=== PATIENT | female | born 1940 | race Caucasian/White ===

== ENCOUNTER 2018-08-05 15:56 | Emergency (ER) | payer MEDICARE, OTHER, SELFPAY ==
[2018-08-05 15:57] VITALS: BP 162/97; PULSE 105; RESP 17; TEMP 37.9; O2SAT 95; BMI 29.0
--- NOTE | 2018-08-05 16:29 | CT_ITS ---
STUDY: CT BRAIN WITHOUT CONTRAST REASON FOR EXAM: Female, 77 years old. Headache, neck pain and stiffness, fever. History of hypertension. RADIATION DOSAGE (If Supplied By Facility): CTDIvol = ( ) mGy, DLP = ( ) mGycm TECHNIQUE: Transaxial CT imaging of the brain was performed without administration of intravenous contrast material. Individualized dose optimization techniques were used for this CT. COMPARISON: No relevant priors. FINDINGS: Normal soft tissue structures. Normal calvarium. Normal size ventricles and extra-axial spaces for the patient's age. Normal white matter tracts of the cerebral hemispheres. Normal basal ganglia and thalami. Normal brainstem. Normal cerebellum. There are mild atherosclerotic calcifications of the cavernous segments of the bilateral internal carotid arteries. There is no intracranial hemorrhage. There are no findings of an acute ischemic infarction. Normal visualized paranasal sinuses. CT/Brain/Head without Contrast IMPRESSION: No acute intracranial pathology. Electronically Signed: Costa Jackson MD at 18:40 EDT , Service support ,
--- NOTE | 2018-08-05 16:29 | CT_ITS ---
STUDY: CT CERVICAL SPINE WITH CONTRAST REASON FOR EXAM: Female, 77 years old. Headache, neck pain and stiffness, fever. History of hypertension. RADIATION DOSAGE (If Supplied By Facility): CTDIvol = ( ) mGy, DLP = ( ) mGycm TECHNIQUE: High resolution transaxial imaging was performed following intravenous administration of 100 mL Isovue-300. Sagittal and coronal images were reconstructed. Individualized dose optimization techniques were used for this CT. COMPARISON: None FINDINGS: Normal craniovertebral junction. There are hypertrophic degenerative changes of the anterior atlantoaxial articulation. There is faint calcification in the cruciate ligament. Normal odontoid process. Normal lower cervical lordosis, minor mid cervical kyphosis, and straightening of the upper cervical lordosis. No acute fracture of the vertebral bodies and posterior osseous elements. C2-3: Normal endplates. Normal disc height and morphology. There is moderate narrowing and early periarticular spurring of the left facet articulation. Normal central canal and intervertebral neuroforamina. C3-4: Right anterolateral and posterolateral endplate spurring. Early degenerative left posterolateral endplate lipping. Normal disc height and morphology. Degenerative degenerative arthropathy of the right facet degeneration with moderately severe space narrowing as well as subarticular cystic degenerative change. Very early degenerative change on the left. Normal central canal. Mild osseous encroachment on the right intervertebral neuroforamen. C4-5: Circumferential endplate osteophytes and degenerative subcortical sclerosis. Moderately severe disc height narrowing. Degenerative narrowing and sclerosis at the anterior margin of the left facet joint. There is osteophyte impingement on the anterior central canal and left intervertebral neuroforamen. C5-6: Circumferential endplate osteophytes and degenerative subcortical sclerosis. Moderately severe disc height narrowing with central posterior disc protrusion. Normal bilateral facet articulations. 1-2 mm retrolisthesis of C5 on C6. There is osteophyte and disc impingement on the anterior central canal. Mild narrowing of the intervertebral neuroforamina. C6-7: Circumferential endplate spurring/osteophytes, greater to the left. Moderately severe disc height narrowing with minor central posterior disc bulge. Anterior narrowing of the left facet joint space. Borderline retrolisthesis of C6 on C7. There is osteophyte impingement on the left anterior recess of central canal and left intervertebral neuroforamen. C7-T1: Mild anterior endplate spurring. Normal disc height and morphology. Hypertrophic degenerative arthrosis of the left facet joint with interosseous fusion and periarticular spurring. Ukbi-ad-[id number] degenerative change noted on the right. Normal central canal. There is early osseous encroachment on the left intervertebral neuroforamen. Normal visualized prevertebral soft tissue structures. There is degenerative ossification in the nuchal ligament at the level of the C5 spinous process. Minor atherosclerotic calcification of the left carotid artery. CT/Spine Cervical WITH Contrast IMPRESSION: 1. No acute fracture of the cervical spine. 2. Multilevel degenerative changes, as described above. Electronically Signed: Costa Jackson MD at 18:40 EDT , Service support ,
--- NOTE | 2018-08-05 16:37 | ED.DCSUM_ITS ---
- ER Visit Summary Date of Service: 08/05/18 Chief Complaint: Fever, neck and back pain History of Present Illness: The patient is a 77 F who noted stiffness to her neck and back yesterday. She had a fever of 100.9 yesterday. Her back and neck are painful with palpation or with movement. She states she was out mulching the yard 4 days ago. She denies headache or URI symptoms. No significant cough or abdominal complaints. reportedly noted a lump on her back. Patient initially went to the urgent care. Urine dip there showed a small amount of leukocyte esterase in her urine. Patient has had prior appendectomy and right hemicolectomy. Physical Examination: Blood pressure is 162/97, temperature 100.2, heart rate 105, respiratory rate 17, pulse ox 95% on room air. Patient is sitting upright in bed no acute distress. She is nontoxic appearing. Head and neck examination reveals tenderness in the cervical paraspinal muscles. There is no meningismus. Heart is regular rate and rhythm. Lung sounds are clear. Abdomen is soft and nontender. Back examination was reproducible tenderness in the thoracic and lumbar paraspinal muscles. Skin examination was erythema over the left scapula with yellow blistered lesions consistent with zoster. Neuro exam reveals no deficits. Test Results: Two-view chest x-ray shows hyperexpansion and minimal scarring. CT head shows no acute intracranial pathology. CT C-spine shows degenerative changes. CBC reveals a white count of 14.1 with 76% neutrophils. Chemistry studies unremarkable. Urinalysis normal. Blood cultures were drawn. Lactic acid is 1.1. Emergency Department Course and Treatment: Patient was given Tylenol for fever. Following completion of unremarkable imaging studies she was given Toradol, Solu-Medrol, and acyclovir. I believe the patient does have some musculoskeletal back pain as she has reproduced will tenderness throughout the paraspinal musculature with recent physical exertion with yardwork. She also has evidence of shingles over the posterior left shoulder. She is treated with prednisone and acyclovir at home. She will be given a short course of [facility] as needed for pain. Treatment Plan: [] Disposition: Discharge Impression: Varicella-zoster left posterior shoulder This note was generated with [employer] dictation software. It may contain incorrect words, spelling, and punctuation that were not noted in review of the chart prior to signing ED Disposition - Plan for ED Patient: Disposition: Home or Assisted Living Instructions: ED Shingles Prescriptions: Hydrocodone Bitart/Apap 5-325 [[facility] 5MG-325MG] 1 tablet PO Q4H PRN PRN 2 Days #10 tablet PRN Reason: Pain Acyclovir [Zovirax] 800 mg PO 5X/DAY #35 tablet Prednisone 10 mg PO UD #33 tablet Referrals: Tim Morillo III, MD [Primary Care Provider] - 3-5 Days
[2018-08-05] MEDS: 0.9% Normal Saline 1,000 ML 150 ML IV (16:56)
[2018-08-05] MEDS: Acetaminophen 500 MG Tablet 1000 MG PO (16:56)
[2018-08-05 17:01] VITALS: BP 148/75; PULSE 90; RESP 18; TEMP 37.4; O2SAT 94
[2018-08-05 17:07] LABS: Absolute Lymphocyte Count 1.07 X10^3/ul (0.83-4.51); Absolute Neutrophil Count 10.8 X10^3/uL (2.0-7.7); Basophil# 0.05 X10^3/uL; Basophil% 0.4 % (0-1); Eosinophil# 0.02 X10^3/uL; Eosinophils% 0.1 % (0-5); Hematocrit 43.9 % (37-47); Hemoglobin 14.9 g/dl (12.0-15.0); Lymphocyte # 1.07 X10^3/ul (4.0); Lymphocyte % 7.6 % (19-41); Mean Corp Hgb Conc 33.9 g/gl (32-36); Mean Corpuscular Volume 97.3 fL (81-99); Mean Platelet Vol. 10.7 fl (6.2-12.0); Monocyte# 2.19 X10^3/uL; Monocyte% 15.5 % (0-10); Neutrophil # 10.79 X10^3/uL (2.7-7.7); Neutrophil % 76.3 % (47-70); Platelet Count 262 K/mm3 (150-450); RBC Distribution Width CV 13.1 % (11.6-14.6); RBC Distribution Width SD 46.7 fl (35.1-43.9); Red Blood Count 4.51 M/mm3 (4.2-5.4); White Blood Count 14.1 K/mm3 (4.4-11.0)
[2018-08-05 17:11] LABS: Differential Indicated SCAN CRITERIA MET; POSITIVE COUNT NO; POSITIVE DIFFERENTIAL YES; POSITIVE MORPHOLOGY NO
[2018-08-05 17:15] LABS: Anion Gap 7 (5-15); BUN 14 mg/dL (7-18); BUN/Creat Ratio 15.9 RATIO (10-20); Calcium,Total 9.2 mg/dL (8.5-10.1); Chloride 101 mmol/L (98-107); Creatinine, Serum 0.88 mg/dL (0.55-1.02); EST Glomerular Filtration Rate 66 mL/min (>60); Est Glom Filt Rate - Afr Amer 80 mL/min (>60); Estimated Creatinine Clearance 48.94 ml/min; Glucose 112 mg/dL (74-106); Potassium 3.5 mmol/L (3.5-5.1); Sodium Level 138 mmol/L (136-145)
[2018-08-05 17:20] LABS: Lactic Acid 1.1 mmol/L (0.4-2.0)
[2018-08-05 17:23] LABS: Differential Comment SCANNED
--- NOTE | 2018-08-05 17:46 | RAD_ITS ---
STUDY: X-RAY CHEST REASON FOR EXAM: Female, 77 years old. Fever, neck and back pain. Shingles on shoulder. TECHNIQUE: PA and lateral views of the chest. COMPARISON: None. FINDINGS: There is hyperinflation of the lungs, suggesting obstructive lung disease. Minimal linear scarring or subsegmental atelectasis noted in the inferolateral costophrenic sulci. No lobar consolidation. There is no demonstrated pleural abnormality. Normal size heart. Normal mediastinum and deshawn. Normal visualized pulmonary arteries. Normal visualized aortic arch and descending thoracic aorta. There are degenerative changes of the mid thoracic spine. 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 Normal visualized ribs, clavicles, and shoulders. There is no demonstrated abnormality of the visualized soft tissue structures of the upper abdomen. RAD/Chest PA and Lateral IMPRESSION: Hyperexpanded, suggesting obstructive pulmonary disease. Minimal inferolateral pulmonary scarring. Electronically Signed: Costa Jackson MD at 18:40 EDT , Service support ,
[2018-08-05 18:01] VITALS: BP 153/77; PULSE 87; RESP 19; TEMP 37.3; O2SAT 94
[2018-08-05 18:57] LABS: Bacteria 0 SEEN /hpf (None Seen); Mucous, Urine 0 SEEN /hpf (<or=2+); Red Blood Cells-Urine 0 SEEN /hpf (0-5); Squamous Epithelial Cells - UA 0 SEEN /hpf (5-10)
[2018-08-05 19:11] LABS: Color, Urine Yellow (Yellow); Glucose, Dipstick Normal (Normal); Ketone-Dipstick Negative (Negative); Leukocyte Esterase-Dipstick 25 /ul (Negative); Nitrite-Dipstick Negative (Negative); Occult Blood-Urine 10 /ul (Negative); Protein-Dipstick Negative (Negative); Specific Gravity, Urine 1.005 (1.002-1.030); Urine Bilirubin Dipstick Negative (Negative); Urine Clarity Clear (Clear); Urine Urobilinogen Normal (Normal)
[2018-08-05 19:38] LABS: White Blood Cells 0-5 SEEN /hpf (0-5)
[2018-08-05] MEDS: Acyclovir 800 MG Tablet PO (19:46)
[2018-08-05] MEDS: MethylPREDNISolone 125 MG/2 ML Vial IV (19:46)
[2018-08-05] MEDS: Ketorolac 15 MG/ML Vial IV (19:47)
[2018-08-05 20:37] VITALS: BP 155/70; PULSE 79; RESP 16; O2SAT 92
[2018-08-05 20:42] VITALS: BP 155/70; PULSE 79; RESP 16; O2SAT 94
[2018-08-08 14:44] LABS: Pathologist Review Reviewed
== END 2018-08-05 20:43 | disposition home or self-care (01) ==
PROVIDERS: Emergency Provider Emergency Medicine; Family Provider Family Medicine; PCP Family Medicine
DX: B02.9 Zoster without complications (principal); I10 Essential (primary) hypertension; Z79.82 Long term (current) use of aspirin; Z79.899 Other long term (current) drug therapy
CPT/HCPCS: 36415; 70450; 71046; 72126; 80048; 81001; 83605; 85025; 87040; 96361; 96374; 96375; 99284; J7030; Q9967; A4216

== ENCOUNTER 2020-05-30 06:39 | Outpatient (RCR) | payer MEDICARE, OTHER, SELFPAY ==
[2020-05-30] MEDS: COVID-19 VACC, MRNA(PFIZER)/PF 30 MCG/0.3 ML SYRINGE IM (16:31)
[2020-06-20] MEDS: COVID-19 VACC, MRNA(PFIZER)/PF 30 MCG/0.3 ML SYRINGE IM (15:58)
== END 2020-09-03 23:59 ==
LOC: IMMUN 06:39
PROVIDERS: PCP Family Medicine; Referring Provider Family Medicine; Visit Provider Family Medicine
DX: Z23 Encounter for immunization (principal)
CPT/HCPCS: 0001A; 0002A; 91300

== ENCOUNTER → 2023-04-15 | Outpatient (CLI) | payer MEDICARE, OTHER, SELFPAY ==
--- OUTSIDE RECORDS SUMMARY | 2023-04-15 06:02 | XMS RPT_ITS | CCD ---
Author Name Unknown Address [address] [place] [address] Organization [facility] Care Team Providers Care 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 Name Role Phone Elizabeth Schmidt MD Primary Care Provider ELIZABETH SCHMIDT Primary Care Unavailable ELIZABETH SCHMIDT Referring Unavailable ELIZABETH SCHMIDT Primary Care Unavailable ELIZABETH SCHMIDT Referring Unavailable ELIZABETH SCHMIDT Primary Care Unavailable ELIZABETH SCHMIDT Attending Unavailable CARLOS MILLER Referring Unavailable ELIZABETH SCHMIDT Primary Care Unavailable ELIZABETH SCHMIDT Primary Care Unavailable ELIZABETH SCHMIDT Referring Unavailable ELIZABETH SCHMIDT Primary Care Unavailable ELIZABETH SCHMIDT Attending Unavailable ELIZABETH SCHMIDT Primary Care Unavailable ELIZABETH BARCENAS Referring Unavailable ELIZABETH SCHMIDT Primary Care Unavailable Allergies Allergy Classification Reported Allergen(s) Allergy Type Date of Onset Reaction(s) Facility (13 sources) meloxicam; Translations: [MELOXICAM] Drug Allergy 8 GI Upset [facility] Work Phone: (9 sources) ENVIRONMENTAL [Other] Propensity to adverse reactions 5 Unknown [facility] Work Phone: (1 source) OTHER; Translations: [OTHER] Propensity to adverse reactions (disorder) 5 [facility] Medications Current Medications Medication Drug Class(es) Dates Sig (Normalized) Sig (Original) benzonatate 100 mg oral capsule (3 sources) Non-narcotic Antitussive Start: 02-24-2023 End: 03-03-2023 take 1 capsule by mouth every eight hours as needed benzonatate (TESSALON PERLE) 100 mg capsule Take 1 capsule by mouth three times a day as needed for cough for up to 7 days. 21 capsule 0 02/24/2023 03/03/2023 Active Completed/Discontinued Medications Medication Drug Class(es) Dates Sig (Normalized) Sig (Original) [id number] 200 actuat albuterol 0.09 mg/actuat metered dose inhaler (12 sources) beta2-Adrenergic Agonist Start: 05-06-2020 take 2 puff(s) by inhalation every four hours as needed for wheezing albuterol HFA (PROAIR HFA) 90 mcg/actuation inhaler INHALE 2 PUFFS INTO THE LUNGS INSTRUCTED EVERY 4 HOURS NEEDED FOR WHEEZING/SOB 8 g 4 05/06/2020 Active Problems Active Problems Problem Classification Problem Date Documented Da te Episodic/Chronic Asthma (14 sources) Mild intermittent asthma; Translations: [Mild intermittent asthma, uncomplicated] Onset: 6 Chronic Cardiac dysrhythmias (2 sources) Premature atrial contraction; Translations: [Atrial premature depolarization] Onset: 3 03-01-2023 Chronic Cardiac dysrhythmias (2 sources) Palpitations; Translations: [Palpitations] Onset: 3 03-01-2023 Episodic Disorders of lipid metabolism (15 sources) Mixed hyperlipidemia; Translations: [Mixed hyperlipidemia] Onset: 6 Chronic Esophageal disorders (15 sources) Gastroesophageal reflux disease without esophagitis; Translations: [Gastro-esophageal reflux disease without esophagitis] Onset: 7 Chronic Essential hypertension (15 sources) Essential hypertension; Translations: [Essential (primary) hypertension] Onset: 9 Chronic Headache; including migraine (14 sources) Ophthalmic migraine; Translations: [Migraine with aura, not intractable, without status migrainosus] Chronic Osteoarthritis (20 sources) Arthritis of left knee; Translations: [Unilateral primary osteoarthritis, left knee] Onset: 5 04-24-2021 Chronic Other connective tissue disease (1 source) Pain in right foot; Translations: [Pain in right foot] Episodic Other connective tissue disease (1 source) Tendinitis; Translations: [Other enthesopathy of unspecified foot and ankle] Episodic Other gastrointestinal disorders (14 sources) Irritable bowel syndrome; Translations: [Irritable bowel syndrome without diarrhea] Onset: 1 Chronic Other inflammatory condition of skin (12 sources) Rosacea; Translations: [Rosacea, unspecified] Onset: 9 04-24-2021 Chronic Other nutritional; endocrine; and metabolic disorders (2 sources) Hypomagnesemia; Translations: [Hypomagnesemia] Onset: 3 03-02-2023 Chronic Retinal detachments; defects; vascular occlusion; and retinopathy (12 sources) Nonexudative age-related macular degeneration; Translations: [Nonexudative age-related macular degeneration, unspecified eye, stage unspecified] 04-24-2021 Chronic Unclassified (1 source) Acute cough; Translations: [Acute cough] Onset: 3 Past or Other Problems Problem Classification Problem Date Documented Da te Episodic/Chronic Administrative/social admission (14 sources) Advance directive discussed with patient; Translations: [Other specified counseling] Onset: 2 Episodic Coagulation and hemorrhagic disorders (2 sources) Petechiae; Translations: [Spontaneous ecchymoses] Onset: 3 Episodic Immunizations and screening for infectious disease (14 sources) Requires vaccination; Translations: [Encounter for immunization] Onset: 2 Episodic Other aftercare (12 sources) Patient encounter status; Translations: [Other mcfp (current) drug therapy] Onset: 2 04-24-2021 Episodic Other aftercare (1 source) Other exterminator helper (current) drug therapy; Translations: [Medication management] Onset: 2 Episodic Other gastrointestinal disorders (12 sources) Diarrhea after gastrointestinal tract surgery; Translations: [Diarrhea, unspecified] Onset: 5 01-03-2015 Episodic Other inflammatory condition of skin (12 sources) Lichen planus; Translations: [Lichen planus, unspecified] Onset: 1 04-24-2021 Episodic Other non-traumatic joint disorders (2 sources) Pain in right knee; Translations: [Pain in joint, lower leg] Onset: 3 Episodic Other non-traumatic joint disorders (1 source) Pain in left knee; Translations: [Pain in both knees, unspecified chronicity] Onset: 3 Episodic Residual codes; unclassified (13 sources) Active living will ; Translations: [Other specified health status] Onset: 2 Episodic Results Test Name Value Interpretation Reference Range Facil ity Vital Signs Date Time Vital Sign Value Performing Clinician Faci lity 03-01-2023 15:50-0500 Diastolic blood pressure 78 mm[Hg] Elizabeth Schmidt MD Work Phone: [facility] 03-01-2023 15:50-0500 Systolic blood pressure 138 mm[Hg] Elizabeth Schmidt MD Work Phone: [facility] 03-01-2023 15:09-0500 Body temperature 98.6 [degF] Elizabeth Schmidt MD Work Phone: [facility] 03-01-2023 15:09-0500 Body weight 77.56 kg Elizabeth Schmidt MD Work Phone: [facility] 03-01-2023 15:09-0500 Heart rate 68 /min Elizabeth Schmidt MD Work Phone: [facility] 03-01-2023 15:09-0500 Respiratory rate 16 /min Elizabeth Schmidt MD Work Phone: [facility] 03-01-2023 15:09-0500 SaO2% (BldA) [Mass fraction] 97 % Elizabeth Schmidt MD Work Phone: [facility] 01-05-2022 07:54-0400 Body temperature 97.9 [degF] Liliana Praisler-Wood AIR CARRIER INSPECTOR.CLINICAL NURSE OCCUPATIONAL MEDICINE Work Phone: [facility] 01-05-2022 07:54-0400 Body weight 79.11 kg Liliana Praisler-Wood AIR CARRIER INSPECTOR.CLINICAL NURSE OCCUPATIONAL MEDICINE Work Phone: [facility] 01-05-2022 07:54-0400 Diastolic blood pressure 80 mm[Hg] Liliana Praisler-Wood AIR CARRIER INSPECTOR.CLINICAL NURSE OCCUPATIONAL MEDICINE Work Phone: [facility] 01-05-2022 07:54-0400 Heart rate 91 /min Liliana Praisler-Wood AIR CARRIER INSPECTOR.CLINICAL NURSE OCCUPATIONAL MEDICINE Work Phone: [facility] 01-05-2022 07:54-0400 Respiratory rate 18 /min Liliana Praisler-Wood AIR CARRIER INSPECTOR.CLINICAL NURSE OCCUPATIONAL MEDICINE Work Phone: [facility] 01-05-2022 07:54-0400 SaO2% (BldA) [Mass fraction] 97 % Liliana Skinner AIR CARRIER INSPECTOR.CLINICAL NURSE OCCUPATIONAL MEDICINE Work Phone: [facility] 01-05-2022 07:54-0400 Systolic blood pressure 126 mm[Hg] Liliana Skinner AIR CARRIER INSPECTOR.CLINICAL NURSE OCCUPATIONAL MEDICINE Work Phone: [facility] 07-11-2021 09:13-0400 Body height 161 cm Elizabeth Schmidt MD Work Phone: [facility] 07-11-2021 09:13-0400 Body weight 79.38 kg Elizabeth Schmidt MD Work Phone: [facility] 07-11-2021 09:13-0400 Diastolic blood pressure 80 mm[Hg] Elizabeth Schmidt MD Work Phone: [facility] 07-11-2021 09:13-0400 Heart rate 68 /min Elizabeth Schmidt MD Work Phone: [facility] 07-11-2021 09:13-0400 Respiratory rate 12 /min Elizabeth Schmidt MD Work Phone: [facility] 07-11-2021 09:13-0400 Systolic blood pressure 122 mm[Hg] Elizabeth Schmidt MD Work Phone: [facility] Encounters Encounter Date Encounter Type Care Provider Facility Start: 03-02-2023 Telephone encounter Elizabeth Schmidt MD Work Phone: [facility] Procedures Date Procedure Procedure Detail Performing Clinician Start: 07-11-2021 Adult depression screening assessment Elizabeth Schmidt MD Work Phone: Plan of Treatment Date Care Activity Detail Author Start: 03-01-2026 Diabetes Screening Diabetes [facility] [place] Start: 07-22-2025 DIABETES SCREEN DIABETES SCREEN [facility] Start: 07-22-2025 Diabetes Screening Diabetes Screenin [place] Start: 07-05-2024 DIABETES SCREEN DIABETES SCREEN [facility] Start: 07-30-2023 ANNUAL PCP TEAM ERISA ATTORNEY LACEY DISEASE VISIT ANNUAL PCP TEAM CHRONIC DISEASE VISIT [facility] Start: 07-30-2023 BP CONTROLLED (<130/80) BP CONTROLLE D (<130/80) [facility] Start: 07-30-2023 Urine microalbumin profile [facility] Immunizations Immunization Date Immunization Notes Care Provider Vic hernandes 12-31-2022 Influenza, injectabl e, Madin [place] Canine Kidney, quadrivalent with preservative Elizabeth Schmidt MD Work Phone: [facility] 07-29-2022 pneumococcal (PCV20) vaccine, 20 valent (PREVNAR 20) Elizabeth Schmidt MD Work Phone: [facility] 07-29-2022 pneumococcal Conjuga te, unspecified formulation Elizabeth Schmidt MD Work Phone: [facility] Work Phone: 01-26-2022 influenza (aIIV4) vaccine, age 65+ yr, quadrivalent, PF (FLUAD QUADRIVALENT) Elizabeth Schmidt MD Work Phone: [facility] 01-20-2022 COVID-19 booster vaccine, age 12+ yr, bivalent (PFIZER-BIONTECH) Elizabeth Schmidt MD Work Phone: [facility] 04-01-2021 COVID-19 original vaccine, age 12+ yr, monovalent (PFIZER-BIONTECH - PURPLE TOP) Elizabeth Schmidt MD Work Phone: [facility] 03-10-2021 zoster vaccine recombinant Elizabeth Schmidt MD Work Phone: [facility] 12-05-2020 zoster vaccine recombinant Elizabeth Schmidt MD Work Phone: [facility] 06-20-2020 COVID-19 original vaccine, age 12+ yr, monovalent (PFIZER-BIONTECH - PURPLE TOP) Elizabeth Schmidt MD Work Phone: [facility] 05-30-2020 COVID-19 original vaccine, age 12+ yr, monovalent (PFIZER-BIONTECH - PURPLE TOP) Elizabeth Schmidt MD Work Phone: [facility] 01-19-2018 influenza, high dose seasonal, preservative-free Elizabeth Schmidt MD Work Phone: [facility] 12-21-2016 influenza, high dose seasonal, preservative-free Elizabeth Schmidt MD Work Phone: [facility] 01-03-2015 pneumococcal conjuga te vaccine, 13 valent Elizabeth Schmidt MD Work Phone: [facility] 12-25-2014 influenza, high dose seasonal, preservative-free Elizabeth Schmidt MD Work Phone: [facility] 01-10-2013 influenza virus vacc ine, unspecified formulation Elizabeth Schmidt MD Work Phone: [facility] Work Phone: 10-26-2011 zoster vaccine, live Elizabeth Schmidt MD Work Phone: [facility] 10-20-2010 pneumococcal polysaccharide vaccine, 23 valjanneth Schmidt MD Work Phone: [facility] Work Phone: 04-21-2010 tetanus and diphther ia toxoids, adsorbed, preservative free, for adult use (2 Lf of tetanus toxoid and 2 Lf of diphtheria toxoid) Elizabeth Schmidt MD Work Phone: [facility] Work Phone: 02-05-2008 influenza virus vacc ine, unspecified formulation Elizabeth Schmidt MD Work Phone: [facility] 02-01-2007 influenza virus vacc ine, unspecified formulation Elizabeth Schmidt MD Work Phone: [facility] Work Phone: 01-25-2006 influenza virus vacc ine, unspecified formulation Elizabeth Schmidt MD Work Phone: [facility] 12-02-2005 pneumococcal polysaccharide vaccine, 23 valjanneth Schmidt MD Work Phone: [facility] Work Phone: 09-25-2000 diphtheria and tetan us toxoids, adsorbed for pediatric use Elizabeth Schmidt MD Work Phone: [facility] Work Phone: Payers Date Payer Category Payer Unknown [employer] [id number] 2006-Present [phone] [address] [place] [id number] Indemnity [id number] 2006 Unknown [employer] [id number] 2006-Present [phone] [address] [place] [phone] Indemnity [id number] 2006 Unknown [id number] 2006 Medicare MEDICARE MEDICAR E A AND B [id number] 2006-Present [phone] [place] [address] Medicare [id number] 2006 Medicare MEDICARE MEDICAR E A AND B [id number] 2006-Present [phone] [place] [address] Medicare [id number] 2006 Medicare [id number] Social History Date Type Detail Facility Start: 01-05-2022 Tobacco smoking status WIIS Never smoked tobacco [facility] Work Phone: Start: 07-11-2021 End: 03-02-2023 Alcohol intake Current drinker of alcohol (finding) [facility] Start: 03-03-2020 End: 07-11-2021 Alcohol intake [facility] Start: 01-23-2020 History SDOH Alcohol Frequency 4 [facility] Start: 01-23-2020 History SDOH Alcohol Std Drinks 1 [facility] Start: 01-23-2020 History SDOH Alcohol Comment occasionally [facility] Start: 1940 Sex Assigned At Not on file [facility] Start: 07-01-2021 End: 01-05-2022 Exposure to SARS-CoV-2 (event) Not sure [facility] Start: 01-05-2022 Tobacco use and exposure Smokeless tobacco non-user [facility] Start: 01-23-2020 End: 03-03-2020 Alcohol Use Disorder Identification Test - Consumption [AUDIT-C] [facility] How often to you hav e a drink containing alcohol? 2-3 time sa week [facility] How many standard dr inks containing alcohol do you have on a typical day? 1 or 2 [facility] How often do you hav e 6 or more drinks on 1 occasion? Never [facility] Adult Depression Scr eening Assessment 0 [facility] Work Phone: Clinical Notes 10-04-2016 to 03-03-2023 Telephone Encounter - Travis Hilton LPN - 03/03/2023 8:37 AM ESTTelephone Encounter - Elizabeth Schmidt MD - 03/02/2023 4:51 PM ESTBurElizabeth rascon MD - 03/01/2023 3:03 PM EST Note Date & Type Note Facility 03-03-2023 Miscellaneous Notes Patient notified of results and provider's instructions. Patient verbalizes understanding. Travis Hilton LPN Let patient know her CBC, electrolyte panel and thyroid lab were all ok. Her Mg was slightly low at 1.6 (th low end of normal is 1.7) most likely not the cause of the premature beat but advise het to get some OTC Magnesium oxide 250 mg and take one a day. documented in this encounter [facility] 03-01-2023 Note HNO ID: [id number] Author: Elizabeth Schmidt MD Service: ? Author Type: Physician Type: Progress Notes Filed: 03/01/2023 4:09 PM Note Text: Chief Complaint Patient presents with: Follow Up HPI John Benson is a 82 year old female who presents here today for from visit with Cough. tested positive on 02/14/2023 and she was seen on 02/24/2023. She was not test but they assumed she had it. They did an xray. How is cough? Patient has noticed coughing more. Triage Note. Patient calls for concern about irregular heart beat d/t BP monitor reading HR is irregular. Nurse triage completed. Protocol recommends see provider within 4 ours. Appointment scheduled. Care advice reviewed. Patient verbalizes understanding. Reason for Disposition Age > 60 years (Exception: Brief heartbeat symptoms that went away and now feels well.) Answer Assessment - Initial Assessment Questions 1. DESCRIPTION: Patient reports that since being seen in for viral illness that she has been monitoring BP and HR at home on machine and the monitor is telling her that her HR is irregular. Patient denies any palpitations currently. She reports that when it first started registering irregular she thought she was feeling some palpitations but none since the first day. Current BP 131/73 and HR 86. Patient reports that she is also monitoring her husbands and his is not registering as abnormal. Patient replaced batteries in machine and it continues to read irregular. Patient to bring BP monitor to appointment. 2. ONSET: 4 days ago 3. DURATION: Each time she monitors her BP and HR 4. PATTERN: Constant. Denies any feelings. 5. TAP: NA 6. HEART RATE: 86 7. RECURRENT SYMPTOM: No 8. CAUSE: Patient is not certain but is concerned. 9. CARDIAC HISTORY: No history of heart attack, angina, bypass surgery, angioplasty, arrhythmia. 10. OTHER SYMPTOMS: No dizziness, chest pain, sweating, or difficulty breathing. Protocols used: Heart Rate and Heartbeat [id number] Has noted palpitations a few times maybe. There was a a day where she noted some chest pain on the right. No radiation into the jaw or arm. Denies any shortness of breath. No syncope. No recurrence of pain since then. Past medical history, appointments, medications, allergies reviewed. Previous Medical History PAST MEDICAL HISTORY Diagnosis Date Advance directive discussed with patient 07/11/2021 Discussed 06/2021 Arthritis Arthritis of both knees 08/09/2022 X-ray 07/2022 Arthritis of left knee 01/03/2015 Asthmatic bronchitis 09/25/2015 CKD (chronic kidney disease) stage 3, GFR 30-59 ml/min ([facility]) 10/02/2015 Colonic mass 05/11/2014 microperforation 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 following gastrointestinal surgery 01/03/2015 Diverticulosis of colon (without mention of hemorrhage) Essential hypertension 07/11/2008 GERD without esophagitis 03/30/2006 History of basal cell carcinoma chest Hyperlipidemia, mixed 09/25/2015 IBS (irritable bowel syndrome) diarrhea Lichen planus 05/06/[address] 07/11/2021 DPA: Enedelia () Macular degeneration, dry Medicare annual wellness visit, subsequent 07/11/2021 Medicare part B: 07/27/2006 Last done: 07/11/2021 Neurofibroma 06/10/2018 right anterior chest wall Ocular migraine Rosacea Previous Surgical History PAST SURGICAL HISTORY Procedure Laterality Date ADENOIDECTOMY PRIMARY COLON SURGERY HX COLONOSCOPY FLX DX W/COLLJ SPEC WHEN PFRMD 12/06/2006 Repeat due 2016 COLONOSCOPY FLX DX W/COLLJ SPEC WHEN PFRMD 01/23/2020 Colonoscopy ESOPHAGOGASTRODUODENOSCOPY TRANSORAL DIAGNOSTIC 01/23/2020 EGD LAPS COLECTOMY PRTL W/RMVL TERMINAL ILEUM 05/11/2014 Laparoscopic Right Hemicolectomy/Liver biopsy/Repair duodenal serosal tear REMV CATARACT EXTRACAP,INSERT LENS Bilateral 2021 SIGMOIDOSCOPY FLX DX W/COLLJ SPEC BR/WA IF PFRMD 09/2000 SKIN BIOPSY HX TONSILLECTOMY HX TONSILLECTOMY PRIMARY/SECONDARY Family History FAMILY HISTORY Problem Relation Age of Onset Heart Mother atrial fibrillation Arthritis Mother Alzheimer's Disease Mother other (TIA) Mother other (macular degeneration) Mother wet Ischemic Heart Disease Father other (macular degeneration) Father dry Ischemic Heart Disease Brother 58 other (macular degeneration) Brother Heart disease Brother Prostate Cancer Brother Diabetes Maternal Grandmother Heart Paternal Grandfather Colon Cancer Maternal Aunt Multiple Sclerosis Grandchild Patient Allergies ALLERGIES Allergen Reactions Meloxicam GI Upset Current Medications Current Outpatient Medications on File Prior to Visit Medication Sig guaiFENesin (MUCINEX) 600 mg 12 hr tablet Take 1 tablet by mouth two times a day as needed for cold/allergy symptoms (cough) for up to 7 days. benzonatate (TESSALON PERLE) 100 mg capsule Take 1 capsule by mouth three times (more content not included)... [facility] 03-01-2023 History of Presen t illness Narrative Chief Complaint Patient presents with: Follow Up HPI John Benson is a 82 year old female who presents here today for from visit with Cough. tested positive on 02/14/2023 and she was seen on 02/24/2023. She was not test but they assumed she had it. They did an xray. How is cough? Patient has noticed coughing more. Triage Note. Patient calls for concern about irregular heart beat d/t BP monitor reading HR is irregular. Nurse triage completed. Protocol recommends see provider within 4 ours. Appointment scheduled. Care advice reviewed. Patient verbalizes understanding. Reason for Disposition Age > 60 years (Exception: Brief heartbeat symptoms that went away and now feels well.) Answer Assessment - Initial Assessment Questions 1. DESCRIPTION: Patient reports that since being seen in for viral illness that she has been monitoring BP and HR at home on machine and the monitor is telling her that her HR is irregular. Patient denies any palpitations currently. She reports that when it first started registering irregular she thought she was feeling some palpitations but none since the first day. Current BP 131/73 and HR 86. Patient reports that she is also monitoring her husbands and his is not registering as abnormal. Patient replaced batteries in machine and it continues to read irregular. Patient to bring BP monitor to appointment. 2. ONSET: 4 days ago 3. DURATION: Each time she monitors her BP and HR 4. PATTERN: Constant. Denies any feelings. 5. TAP: NA 6. HEART RATE: 86 7. RECURRENT SYMPTOM: No 8. CAUSE: Patient is not certain but is concerned. 9. CARDIAC HISTORY: No history of heart attack, angina, bypass surgery, angioplasty, arrhythmia. 10. OTHER SYMPTOMS: No dizziness, chest pain, sweating, or difficulty breathing. Protocols used: Heart Rate and Heartbeat [id number] Has noted palpitations a few times maybe. There was a a day where she noted some chest pain on the right. No radiation into the jaw or arm. Denies any shortness of breath. No syncope. No recurrence of pain since then. Past medical history, appointments, medications, allergies reviewed. Previous Medical History PAST MEDICAL HISTORY Diagnosis Date Advance directive discussed with patient 07/11/2021 Discussed 06/2021 Arthritis Arthritis of both knees 08/09/2022 X-ray 07/2022 Arthritis of left knee 01/03/2015 Asthmatic bronchitis 09/25/2015 CKD (chronic kidney disease) stage 3, GFR 30-59 ml/min ([facility]) 10/02/2015 Colonic mass 05/11/2014 microperforation 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 following gastrointestinal surgery 01/03/2015 Diverticulosis of colon (without mention of hemorrhage) Essential hypertension 07/11/2008 GERD without esophagitis 03/30/2006 History of basal cell carcinoma chest Hyperlipidemia, mixed 09/25/2015 IBS (irritable bowel syndrome) diarrhea Lichen planus 05/06/[address] 07/11/2021 DPA: Enedelia () Macular degeneration, dry Medicare annual wellness visit, subsequent 07/11/2021 Medicare part B: 07/27/2006 Last done: 07/11/2021 Neurofibroma 06/10/2018 right anterior chest wall Ocular migraine Rosacea Previous Surgical History PAST SURGICAL HISTORY Procedure Laterality Date ADENOIDECTOMY PRIMARY <AGE 12 COLON SURGERY HX COLONOSCOPY FLX DX W/COLLJ SPEC WHEN PFRMD 12/06/2006 Repeat due 2016 COLONOSCOPY FLX DX W/COLLJ SPEC WHEN PFRMD 01/23/2020 Colonoscopy ESOPHAGOGASTRODUODENOSCOPY TRANSORAL DIAGNOSTIC 01/23/2020 EGD LAPS COLECTOMY PRTL W/RMVL TERMINAL ILEUM 05/11/2014 Laparoscopic Right Hemicolectomy/Liver biopsy/Repair duodenal serosal tear REMV CATARACT EXTRACAP,INSERT LENS Bilateral 2021 SIGMOIDOSCOPY FLX DX W/COLLJ SPEC BR/WA IF PFRMD 09/2000 SKIN BIOPSY HX TONSILLECTOMY HX TONSILLECTOMY PRIMARY/SECONDARY <AGE 13 Family History FAMILY HISTORY Problem Relation Age of Onset Heart Mother atrial fibrillation Arthritis Mother Alzheimer's Disease Mother other (TIA) Mother other (macular degeneration) Mother wet Ischemic Heart Disease Father other (macular degeneration) Father dry Ischemic Heart Disease Brother 58 other (macular degeneration) Brother Heart disease Brother Prostate Cancer Brother Diabetes Maternal Grandmother Heart Paternal Grandfather Colon Cancer Maternal Aunt Multiple Sclerosis Grandchild Patient Allergies ALLERGIES Allergen Reactions Meloxicam GI Upset Current Medications Current Outpatient Medications on File Prior to Visit Medication Sig guaiFENesin (MUCINEX) 600 mg 12 hr tablet Take 1 tablet by mouth two times a day as needed for cold/allergy symptoms (cough) for up to 7 days. benzonatate (TESSALON PERLE) 100 mg capsule Take 1 capsule by mouth three times a day as needed for cough for up to 7 days. atorvastatin (LIPITOR) 10 mg tablet Take 1 tablet by mouth once daily. lisinopril (ZESTRIL) 20 mg tablet Take 1 tablet by mouth once daily. omeprazole (PRILOSEC) 20 mg capsule Take 1 capsule by mouth daily before breakfast. 1/2 hr before meal. hydroCHLOROthiazide 12.5 mg capsule Take 1 capsule by mouth once daily. diclofenac (VOLTAREN ARTHRITIS PAIN) 1 % topical gel Apply 4 g to affected area four times daily. ubidecarenone (CO Q-10 ORAL) Take by mouth. albuterol HFA (PROAIR HFA) 90 mcg/actuation inhaler INHALE 2 PUFFS INTO THE LUNGS INSTRUCTED EVERY 4 HOURS NEEDED FOR WHEEZING/SOB mometasone (ELOCON) 0.1 % cream Apply to affected area once daily. naproxen sodium 220 mg cap Take 1 capsule by mouth as needed. ERGOCALCIFEROL, VITAMIN D2, (VITAMIN D ORAL) Take 2,000 mcg by mouth once daily. ASPIRIN 81 MG TAB Take one(1) tablet daily. OCUVITE TAB Take one tablet daily ONE DAILY MULTI-VITAMIN TAB Take one(1) tablet daily. No current facility-administered medications on file prior to visit. Social History Social History Tobacco Use Smoking status: Never Smokeless tobacco: Never Vaping Use Vaping Use: Never used Substance Use Topics Alcohol use: Yes Alcohol/week: 2.0 standard drinks of alcohol Types: 2 Glasses of wine per week Comment: occasionally Drug use: No Review of Symptoms REVIEW OF SYSTEMS See HPI EXAM: BP 148/88 (BP Site: Right Arm, BP Position: Sitting, BP Cuff Size: Regular Adult) Pulse 68 Temp 37 C (98.6 F) Resp 16 Wt 77.6 kg (171 lb) SpO2 97% BMI (P) 29.82 kg/m BP 138/78 Pulse 68 Temp 37 C (98.6 F) Resp 16 Wt 77.6 kg (171 lb) SpO2 97% BMI (P) 29.82 kg/m General Appearance: Well appearing, alert, in no acute distress, well-hydrated, well nourished. and Overweight. Neck: Supple, no adenopathy; thyroid symmetric, normal size, no bruits. Lungs: Lungs clear to auscultation. No wheezing, rhonchi, rales.. Heart: RRR without murmur, gallop, or rubs. with ectopy. Extremities: No deformities, edema, skin discoloration, clubbing or cyanosis. Good capillary refill. . Health Maintenance List RSV Vaccine(1 - 1-dose 60+ series) Never done Covid-19 Vaccine(2022-24 season) due on 11/27/2022 DTaP,Tdap,Td Vaccine(3 - Tdap) due on 07/30/2023 Diabetes Screening due on 07/22/2025 Bone Density Screening Completed Influenza Vaccine Completed Advance Directive Discussion Completed Depression Assessment Completed Shingrix Vaccine Completed Pneumococcal Vaccine: 65+ Completed Spirometry Discontinued Colorectal Cancer Screening Discontinued Data reviewed In Office EKG: showed NSR with premature atrial beats. No acute ST or T wave changes when compared to EKG 10/09/2013. A/P ASSESSMENT/PLAN: 1. Palpitations - ICD9: 785.1, ICD10: R00.2 (primary diagnosis) Check - ECG COMPLETE - BASIC METABOLIC PNL - MAGNESIUM BLD - TSH BLD - CBC + DIFF - nuclear non-treadmill stress test. 2. PAC (premature atrial contraction) - ICD9: 427.61, ICD10: I49.1 Check - BASIC METABOLIC PNL - MAGNESIUM BLD - TSH BLD - CBC + DIFF - nuclear non-treadmill stress test. With the arthritis in both her knees that affects her ability to just go for walks patient will not be able to complete a diagnostic treadmill stress test. Elizabeth Schmidt MD documented in this encounter [facility] 03-01-2023 Miscellaneous Notes Patient calls for concern about irregular heart beat d/t BP monitor reading HR is irregular. Nurse triage completed. Protocol recommends see provider within 4 ours. Appointment scheduled. Care advice reviewed. Patient verbalizes understanding. Reason for Disposition Age > 60 years (Exception: Brief heartbeat symptoms that went away and now feels well.) Answer Assessment - Initial Assessment Questions 1. DESCRIPTION: Patient reports that since being seen in for viral illness that she has been monitoring BP and HR at home on machine and the monitor is telling her that her HR is irregular. Patient denies any palpitations currently. She reports that when it first started registering irregular she thought she was feeling some palpitations but none since the first day. Current BP 131/73 and HR 86. Patient reports that she is also monitoring her husbands and his is not registering as abnormal. Patient replaced batteries in machine and it continues to read irregular. Patient to bring BP monitor to appointment. 2. ONSET: 4 days ago 3. DURATION: Each time she monitors her BP and HR 4. PATTERN: Constant. Denies any feelings. 5. TAP: NA 6. HEART RATE: 86 7. RECURRENT SYMPTOM: No 8. CAUSE: Patient is not certain but is concerned. 9. CARDIAC HISTORY: No history of heart attack, angina, bypass surgery, angioplasty, arrhythmia. 10. OTHER SYMPTOMS: No dizziness, chest pain, sweating, or difficulty breathing. Protocols used: Heart Rate and Heartbeat [id number] documented in this encounter [facility] 02-24-2023 Note HNO ID: [id number] Author: Sari Dyson RT(R) Service: Radiology Author Type: Technologist Type: Progress Notes Filed: 02/24/2023 9:54 AM Note Text: Radiology Service Progress Note PATIENT NAME: John Benson DATE OF SERVICE: February 24, 2023 TIME: 9:45 AM PATIENT IDENTITY VERIFICATION COMPLETED USING TWO (2) IDENTIFIERS: Name and Date of confirmed by patient verbally. FALL SCREENING: Has the patient had 2 falls in the last year or 1 fall with injury or currently using an Ambulatory Assistive Device (Walker, Cane, Wheelchair, Crutches, etc.)? No PATIENT GENDER DATA: Female. status: : No status: NO. PATIENT RELEVANT IMPLANT DATA REVIEWED: Yes RADIOLOGY DEPARTMENT: General X-ray: Exam(s) Completed: Chest X-Ray PERIPHERAL IV DATA: Not applicable SIGNED BY: RT Gino(R) February 24, 2023 9:45 AM [facility] 02-24-2023 Note HNO ID: [id number] Author: Elizabeth Barcenas APRN.CLINICAL NURSE OCCUPATIONAL MEDICINE Service: ? Author Type: Nurse Practitioner Type: Progress Notes Filed: 02/24/2023 10:06 AM Note Text: Subjective HPI Nontoxic-appearing female presents urgent care chief complaint cough chest congestion fatigue. Duration of symptom 1 week. Associated symptoms listed above. Initially had body aches chills night sweats low-grade temperature sore throat headache those have improved. Today most bothersome symptom today is fatigue and cough. sick similar signs symptoms. No OTC medication use today. Denies any fever body aches chills productive cough chest pain shortness of breath pleuritic pain hemoptysis nausea vomiting abdominal pain change in bowel or bladder habits. Past medical history prescription medication use and allergies reviewed. .Patient presents with: Cough: Congestion and body aches x1 week PAST MEDICAL HISTORY Diagnosis Date Advance directive discussed with patient 07/11/2021 Discussed 06/2021 Arthritis Arthritis of both knees 08/09/2022 X-ray 07/2022 Arthritis of left knee 01/03/2015 Asthmatic bronchitis 09/25/2015 CKD (chronic kidney disease) stage 3, GFR 30-59 ml/min ([facility]) 10/02/2015 Colonic mass 05/11/2014 microperforation 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 following gastrointestinal surgery 01/03/2015 Diverticulosis of colon (without mention of hemorrhage) Essential hypertension 07/11/2008 GERD without esophagitis 03/30/2006 History of basal cell carcinoma chest Hyperlipidemia, mixed 09/25/2015 IBS (irritable bowel syndrome) diarrhea Lichen planus 05/06/[address] 07/11/2021 DPA: Merle () Macular degeneration, dry Medicare annual wellness visit, subsequent 07/11/2021 Medicare part B: 07/27/2006 Last done: 07/11/2021 Neurofibroma 06/10/2018 right anterior chest wall Ocular migraine Rosacea PAST SURGICAL HISTORY Procedure Laterality Date ADENOIDECTOMY PRIMARY COLON SURGERY HX COLONOSCOPY FLX DX W/COLLJ SPEC WHEN PFRMD 12/06/2006 Repeat due 2017 COLONOSCOPY FLX DX W/COLLJ SPEC WHEN PFRMD 01/23/2020 Colonoscopy ESOPHAGOGASTRODUODENOSCOPY TRANSORAL DIAGNOSTIC 01/23/2020 EGD LAPS COLECTOMY PRTL W/RMVL TERMINAL ILEUM 05/11/2014 Laparoscopic Right Hemicolectomy/Liver biopsy/Repair duodenal serosal tear REMV CATARACT EXTRACAP,INSERT LENS Bilateral 2021 SIGMOIDOSCOPY FLX DX W/COLLJ SPEC BR/WA IF PFRMD 09/2000 SKIN BIOPSY HX TONSILLECTOMY HX TONSILLECTOMY PRIMARY/SECONDARY ALLERGIES Environmental [Other] and Meloxicam MEDICATIONS atorvastatin (LIPITOR) 10 mg tablet Take 1 tablet by mouth once daily. lisinopril (ZESTRIL) 20 mg tablet Take 1 tablet by mouth once daily. omeprazole (PRILOSEC) 20 mg capsule Take 1 capsule by mouth daily before breakfast. 1/2 hr before meal. hydroCHLOROthiazide 12.5 mg capsule Take 1 capsule by mouth once daily. diclofenac (VOLTAREN ARTHRITIS PAIN) 1 % topical gel Apply 4 g to affected area four times daily. ubidecarenone (CO Q-10 ORAL) Take by mouth. albuterol HFA (PROAIR HFA) 90 mcg/actuation inhaler INHALE 2 PUFFS INTO THE LUNGS INSTRUCTED EVERY 4 HOURS NEEDED FOR WHEEZING/SOB mometasone (ELOCON) 0.1 % cream Apply to affected area once daily. naproxen sodium 220 mg cap Take 1 capsule by mouth as needed. ERGOCALCIFEROL, VITAMIN D2, (VITAMIN D ORAL) Take 2,000 mcg by mouth once daily. ASPIRIN 81 MG TAB Take one(1) tablet daily. OCUVITE TAB Take one tablet daily ONE DAILY MULTI-VITAMIN TAB Take one(1) tablet daily. FAMILY HISTORY Problem Relation Age of Onset Heart Mother atrial fibrillation Arthritis Mother Alzheimer's Disease Mother other (TIA) Mother other (macular degeneration) Mother wet Ischemic Heart Disease Father other (macular degeneration) Father dry Ischemic Heart Disease Brother 58 other (macular degeneration) Brother Heart disease Brother Prostate Cancer Brother Diabetes Maternal Grandmother Heart Paternal Grandfather Colon Cancer Maternal Aunt Multiple Sclerosis Grandchild Social History Tobacco Use Smoking status: Never Smokeless tobacco: Never Vaping Use Vaping Use: Never used Substance Use Topics Alcohol use: Yes Alcohol/week: 2.0 standard drinks of alcohol Types: 2 Glasses of wine per week Comment: occasionally Drug use: No BP 126/76 Pulse 68 Temp 36.5 ?C (97.7 ?F) Resp 16 Wt 77.2 kg (170 lb 3.2 oz) SpO2 96% BMI (P) 29.68 kg/m? Review of Systems Constitutional: Positive for malaise/fatigue. Negative for chills and fever. HENT: Negative for congestion, ear discharge, ear pain, sinus pain and sore throat. Eyes: Negative for blurred vision, pain, discharge and redness. Respiratory: Positive for cough. Negative for hemoptysis, sputum production, shortness of breath, wheezing and stridor. Cardiovascular: Negative for chest pain. Gastrointestinal: Negative for abdominal pain, d (more content not included)... [facility] 01-12-2023 Miscellaneous Notes Last OV 07/29/2022 Next appointment scheduled 08/04/2023 Patient has been identified by name and date of : Yes Requested Prescriptions Pending Prescriptions Disp Refills atorvastatin (LIPITOR) 10 mg tablet 90 tablet 1 Sig: Take 1 tablet by mouth once daily. lisinopril (ZESTRIL) 20 mg tablet 90 tablet 1 Sig: Take 1 tablet by mouth once daily. omeprazole (PRILOSEC) 20 mg capsule 90 capsule 1 Sig: Take 1 capsule by mouth daily before breakfast. 1/2 hr before meal. RX INSTRUCTIONS: Patient aware RX will be sent to pharmacy. No need to notify patient. Antoinette Ramirez documented in this encounter [facility] 11-18-2022 Miscellaneous Notes Patient has been identified by name and date of : Yes Requested Prescriptions Pending Prescriptions Disp Refills hydroCHLOROthiazide 12.5 mg capsule 90 capsule 1 Sig: Take 1 capsule by mouth once daily. RADHA-07/29/22 Labs-07/29/22 NOV-08/04/23 RX INSTRUCTIONS: Patient aware RX will be sent to pharmacy. No need to notify patient. Emelia Miranda documented in this encounter [facility] 08-10-2022 Miscellaneous Notes Prescription sent per PCP recommendation. Pt informed, verbalized understanding. Pt would like to proceed with Voltaren gel. Please send script to [facility] in [place]. Pt not interested in PT or ortho at this time. Gabriella Villegas MA Let patient know the x-ray of her knees shows age related arthritic changes. We can try PHYSICAL THERAPY, consult to ortho or we can try some Voltaren gel that she can apply to each knee several times a day? documented in this encounter [facility] 07-30-2022 Miscellaneous Notes Pt notified of results. Travis Hilton LPN Let patient know her bleeding studies were normal. Pt's inr results are now in Epic. Was ordered at OV 07/29/22 for petechiae. Travis Hilton LPN Component Ref Range & Units 1 d ago PT Sec 9.7 - 13.0 sec 10.2 INR 0.9 - 1.3 1.0 Component Ref Range & Units 1 d ago APTT 23.0 - 32.4 sec 25.9 Comment: Frozen Plasma Aliquot Resulting Agency documented in this encounter [facility] 07-29-2022 Note HNO ID: [id number] Author: Angeles Lorenz RT(R) Service: Nuclear Medicine Author Type: Technologist Type: Progress Notes Filed: 07/29/2022 11:42 AM Note Text: Radiology Service Progress Note PATIENT NAME: John Benson DATE OF SERVICE: July 29, 2022 TIME: 11:26 AM PATIENT IDENTITY VERIFICATION COMPLETED USING TWO (2) IDENTIFIERS: Name and Date of confirmed by patient verbally. FALL SCREENING: Has the patient had 2 falls in the last year or 1 fall with injury or currently using an Ambulatory Assistive Device (Walker, Cane, Wheelchair, Crutches, etc.)? No PATIENT GENDER DATA: Female. status: : No status: NO. PATIENT RELEVANT IMPLANT DATA REVIEWED: Not Applicable RADIOLOGY DEPARTMENT: General X-ray: Exam(s) Completed: Lower Extremity X-Ray(s): Knee, AP / Lat / Tunne / Merchant Bilateral and Wt. Bearing PERIPHERAL IV DATA: Not applicable SIGNED BY: RT Quan(R) July 29, 2022 11:26 AM [facility] 07-29-2022 Note HNO ID: [id number] Author: Elizabeth Schmidt MD Service: ? Author Type: Physician Type: Progress Notes Filed: 07/30/2022 7:24 PM Note Text: Medicare Yearly Visit Medical B eligibilty date 07/27/2006 Date of last exam 07/11/2021 PAST MEDICAL HISTORY PAST MEDICAL HISTORY Diagnosis Date Advance directive discussed with patient 07/11/2021 Discussed 06/2021 Arthritis Arthritis of left knee 01/03/2015 Asthmatic bronchitis 09/25/2015 CKD (chronic kidney disease) stage 3, GFR 30-59 ml/min ([facility]) 10/02/2015 Colonic mass 05/11/2014 microperforation 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 following gastrointestinal surgery 01/03/2015 Diverticulosis of colon (without mention of hemorrhage) Essential hypertension 07/11/2008 GERD without esophagitis 03/30/2006 History of basal cell carcinoma chest Hyperlipidemia, mixed 09/25/2015 IBS (irritable bowel syndrome) diarrhea Lichen planus 05/06/[address] 07/11/2021 DPA: Merle () Macular degeneration, dry Medicare annual wellness visit, subsequent 07/11/2021 Medicare part B: 07/27/2006 Last done: 07/11/2021 Neurofibroma 06/10/2018 right anterior chest wall Ocular migraine Rosacea PAST SURGICAL HISTORY PAST SURGICAL HISTORY Procedure Laterality Date ADENOIDECTOMY PRIMARY COLON SURGERY HX COLONOSCOPY FLX DX W/COLLJ SPEC WHEN PFRMD 12/06/2006 Repeat due 2017 COLONOSCOPY FLX DX W/COLLJ SPEC WHEN PFRMD 01/23/2020 Colonoscopy ESOPHAGOGASTRODUODENOSCOPY TRANSORAL DIAGNOSTIC 01/23/2020 EGD LAPS COLECTOMY PRTL W/RMVL TERMINAL ILEUM 05/11/14 Laparoscopic Right Hemicolectomy/Liver biopsy/Repair duodenal serosal tear SIGMOIDOSCOPY FLX DX W/COLLJ SPEC BR/WA IF PFRMD 09/2000 SKIN BIOPSY HX TONSILLECTOMY HX TONSILLECTOMY PRIMARY/SECONDARY ALLERGIES: Environmental [Other] and Meloxicam Medications reviewed: Yes FAMILY HISTORY FAMILY HISTORY Problem Relation Age of Onset Heart Mother atrial fibrillation Arthritis Mother Alzheimer's Disease Mother other (TIA) Mother other (macular degeneration) Mother wet Ischemic Heart Disease Father other (macular degeneration) Father dry Ischemic Heart Disease Brother 58 other (macular degeneration) Brother Heart disease Brother Prostate Cancer Brother Diabetes Maternal Grandmother Heart Paternal Grandfather Colon Cancer Maternal Aunt Multiple Sclerosis Grandchild SOCIAL HISTORY: SOCIAL HISTORY Social History Tobacco Use Smoking status: Never Smoker Smokeless tobacco: Never Used Vaping Use Vaping Use: Never used Substance Use Topics Alcohol use: Yes Alcohol/week: 2.0 standard drinks Types: 2 Glasses of wine per week Comment: occasionally Drug use: No John works out regularly 3 times per week with resistance training. She watches her diet for sodium, low fat and low cholesterol most of the time. List of current specialists seen: [facility] ([facility]) End of Live Planning discussed including patients advanced directive wishes: Yes I am willing to follow John's advanced directives. PHQ-2 / Depression screen Depression Screening 05/24/2018 07/11/2021 01/12/2022 07/29/2022 PHQ-2 Score 0 0 0 0 Depression screening tool completed and reviewed. Based on score and interview, patient is not at risk for depression. Screening tool discussed with patient, and I recommended no further intervention at this time. Functional Ability/Safety Screen 1. Was the patient's timed Up and Go test unsteady or longer than 30 seconds? No 2. Does the patient need help with the phone, transportation, shopping,preparing meals, housework, laundry, medications or managing money? No 3. Does your home have rugs in the hallway, lack of grab bars in the bathroom, lack of handrails on the stairs or have poor lighting? No Hearing Evaluation: normal PHYSICAL EXAM BP (P) 126/74 (BP Site: Right Arm, BP Position: Sitting, BP Cuff Size: Large Adult) Pulse (P) 70 Ht (P) 161.3 cm (5' 3.5 ) Wt (P) 78 kg (172 lb) BMI (P) 29.99 kg/m? Alert and oriented X 3: YES Body mass index is 29.99 kg/m?. Visual acuity: seeing Optho See below ASSESSMENT/PLAN: 81 year old female The following prevention plan was discussed during the office visit and provided to the patient: See Below Chief Complaint Patient presents with: Medicare Wellness Exam HPI John Benson is a 81 year old female who presents here today for Chronic Medical Conditions. and Medicare Annual Visit. Office visit - medicare wellness Patient has concern of bilateral knee pain. Has seen Dr. Heart in past who did steroid injection and suggested bilateral knee replacement. Patient aware to get back in with provider. Patient does see [facility] for Eczema and skin checks. No other concerns; has had pain in both knees to arthritis been ongoing. Lower back Office visit - medicare wellness Patient with (more content not included)... [facility] 07-29-2022 Instructions Elizabeth Schmidt MD - 07/29/2022 10:27 AM EDT Please bring in copies of your power of assistant county attorney for health care and living will. If you want to update your tetanus vaccine you want to go to the [facility] and ask for a Tdap. Make an Appt with your core microarchitect at [facility] regarding the spots on your neck and upper chest. documented in this encounter [facility] 07-29-2022 History of Presen t illness Narrative Medicare Yearly Visit Medical B eligibilty date 07/27/2006 Date of last exam 07/11/2021 PAST MEDICAL HISTORY PAST MEDICAL HISTORY Diagnosis Date Advance directive discussed with patient 07/11/2021 Discussed 06/2021 Arthritis Arthritis of left knee 01/03/2015 Asthmatic bronchitis 09/25/2015 CKD (chronic kidney disease) stage 3, GFR 30-59 ml/min ([facility]) 10/02/2015 Colonic mass 05/11/2014 microperforation 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 following gastrointestinal surgery 01/03/2015 Diverticulosis of colon (without mention of hemorrhage) Essential hypertension 07/11/2008 GERD without esophagitis 03/30/2006 History of basal cell carcinoma chest Hyperlipidemia, mixed 09/25/2015 IBS (irritable bowel syndrome) diarrhea Lichen planus 05/06/[address] 07/11/2021 DPA: Enedelia () Macular degeneration, dry Medicare annual wellness visit, subsequent 07/11/2021 Medicare part B: 07/27/2006 Last done: 07/11/2021 Neurofibroma 06/10/2018 right anterior chest wall Ocular migraine Rosacea PAST SURGICAL HISTORY PAST SURGICAL HISTORY Procedure Laterality Date ADENOIDECTOMY PRIMARY <AGE 13 COLON SURGERY HX COLONOSCOPY FLX DX W/COLLJ SPEC WHEN PFRMD 12/06/2006 Repeat due 2016 COLONOSCOPY FLX DX W/COLLJ SPEC WHEN PFRMD 01/23/2020 Colonoscopy ESOPHAGOGASTRODUODENOSCOPY TRANSORAL DIAGNOSTIC 01/23/2020 EGD LAPS COLECTOMY PRTL W/RMVL TERMINAL ILEUM 05/11/14 Laparoscopic Right Hemicolectomy/Liver biopsy/Repair duodenal serosal tear SIGMOIDOSCOPY FLX DX W/COLLJ SPEC BR/WA IF PFRMD 09/2000 SKIN BIOPSY HX TONSILLECTOMY HX TONSILLECTOMY PRIMARY/SECONDARY <AGE 12 ALLERGIES: Environmental [Other] and Meloxicam Medications reviewed: Yes FAMILY HISTORY FAMILY HISTORY Problem Relation Age of Onset Heart Mother atrial fibrillation Arthritis Mother Alzheimer's Disease Mother other (TIA) Mother other (macular degeneration) Mother wet Ischemic Heart Disease Father other (macular degeneration) Father dry Ischemic Heart Disease Brother 58 other (macular degeneration) Brother Heart disease Brother Prostate Cancer Brother Diabetes Maternal Grandmother Heart Paternal Grandfather Colon Cancer Maternal Aunt Multiple Sclerosis Grandchild SOCIAL HISTORY: SOCIAL HISTORY Social History Tobacco Use Smoking status: Never Smoker Smokeless tobacco: Never Used Vaping Use Vaping Use: Never used Substance Use Topics Alcohol use: Yes Alcohol/week: 2.0 standard drinks Types: 2 Glasses of wine per week Comment: occasionally Drug use: No John works out regularly 3 times per week with resistance training. She watches her diet for sodium, low fat and low cholesterol most of the time. List of current specialists seen: Dr. Heart (ortho [facility] (Derm) End of Live Planning discussed including patients advanced directive wishes: Yes I am willing to follow John's advanced directives. PHQ-2 / Depression screen Depression Screening 05/24/2018 07/11/2021 01/12/2022 07/29/2022 PHQ-2 Score 0 0 0 0 Depression screening tool completed and reviewed. Based on score and interview, patient is not at risk for depression. Screening tool discussed with patient, and I recommended no further intervention at this time. Functional Ability/Safety Screen 1. Was the patient's timed Up and Go test unsteady or longer than 30 seconds? No 2. Does the patient need help with the phone, transportation, shopping,preparing meals, housework, laundry, medications or managing money? No 3. Does your home have rugs in the hallway, lack of grab bars in the bathroom, lack of handrails on the stairs or have poor lighting? No Hearing Evaluation: normal PHYSICAL EXAM BP (P) 126/74 (BP Site: Right Arm, BP Position: Sitting, BP Cuff Size: Large Adult) Pulse (P) 70 Ht (P) 161.3 cm (5' 3.5 ) Wt (P) 78 kg (172 lb) BMI (P) 29.99 kg/m Alert and oriented X 3: YES Body mass index is 29.99 kg/m . Visual acuity: seeing Optho See below ASSESSMENT/PLAN: 81 year old female The following prevention plan was discussed during the office visit and provided to the patient: See Below Chief Complaint Patient presents with: Medicare Wellness Exam HPI John Benson is a 81 year old female who presents here today for Chronic Medical Conditions. and Medicare Annual Visit. Office visit - medicare wellness Patient has concern of bilateral knee pain. Has seen Dr. Heart in past who did steroid injection and suggested bilateral knee replacement. Patient aware to get back in with provider. Patient does see [facility] for Eczema and skin checks. No other concerns; has had pain in both knees to arthritis been ongoing. Lower back Office visit - medicare wellness Patient with hx of HTN, hyperlipidemia, GERD, rosacea, arthritis, and those as below. Patient overall doing okay. Right ankle pain has been ongoing. Saw express care last week and started on prednisone. Has improved some. Past medical history, appointments, medications, allergies reviewed. Previous Medical History PAST MEDICAL HISTORY Diagnosis Date Advance directive discussed with patient 07/11/2021 Discussed 06/2021 Arthritis Arthritis of left knee 01/03/2015 Asthmatic bronchitis 09/25/2015 CKD (chronic kidney disease) stage 3, GFR 30-59 ml/min ([facility]) 10/02/2015 Colonic mass 05/11/2014 microperforation 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 following gastrointestinal surgery 01/03/2015 Diverticulosis of colon (without mention of hemorrhage) Essential hypertension 07/11/2008 GERD without esophagitis 03/30/2006 History of basal cell carcinoma chest Hyperlipidemia, mixed 09/25/2015 IBS (irritable bowel syndrome) diarrhea Lichen planus 05/06/[address] 07/11/2021 DPA: Enedelia () Macular degeneration, dry Medicare annual wellness visit, subsequent 07/11/2021 Medicare part B: 07/27/2006 Last done: 07/11/2021 Neurofibroma 06/10/2018 right anterior chest wall Ocular migraine Rosacea Previous Surgical History PAST SURGICAL HISTORY Procedure Laterality Date ADENOIDECTOMY PRIMARY <AGE 13 COLON SURGERY HX COLONOSCOPY FLX DX W/COLLJ SPEC WHEN PFRMD 12/06/2006 Repeat due 2016 COLONOSCOPY FLX DX W/COLLJ SPEC WHEN PFRMD 01/23/2020 Colonoscopy ESOPHAGOGASTRODUODENOSCOPY TRANSORAL DIAGNOSTIC 01/23/2020 EGD LAPS COLECTOMY PRTL W/RMVL TERMINAL ILEUM 05/11/14 Laparoscopic Right Hemicolectomy/Liver biopsy/Repair duodenal serosal tear SIGMOIDOSCOPY FLX DX W/COLLJ SPEC BR/WA IF PFRMD 09/2000 SKIN BIOPSY HX TONSILLECTOMY HX TONSILLECTOMY PRIMARY/SECONDARY <AGE 13 Family History FAMILY HISTORY Problem Relation Age of Onset Heart Mother atrial fibrillation Arthritis Mother Alzheimer's Disease Mother other (TIA) Mother other (macular degeneration) Mother wet Ischemic Heart Disease Father other (macular degeneration) Father dry Ischemic Heart Disease Brother 58 other (macular degeneration) Brother Heart disease Brother Prostate Cancer Brother Diabetes Maternal Grandmother Heart Paternal Grandfather Colon Cancer Maternal Aunt Multiple Sclerosis Grandchild Patient Allergies ALLERGIES Allergen Reactions Environmental [Othe* Unknown Meloxicam GI Upset Current Medications Current Outpatient Medications on File Prior to Visit Medication Sig atorvastatin (LIPITOR) 10 mg tablet Take 1 tablet by mouth once daily. lisinopril (ZESTRIL) 20 mg tablet Take 1 tablet by mouth once daily. omeprazole (PRILOSEC) 20 mg capsule Take 1 capsule by mouth daily before breakfast. 1/2 hr before meal. hydroCHLOROthiazide (HYDRODIURIL, ESIDRIX) 12.5 mg capsule Take 1 capsule by mouth once daily. ubidecarenone (CO Q-10 ORAL) Take by mouth. albuterol HFA (PROAIR HFA) 90 mcg/actuation inhaler INHALE 2 PUFFS INTO THE LUNGS INSTRUCTED EVERY 4 HOURS NEEDED FOR WHEEZING/SOB mometasone (ELOCON) 0.1 % cream Apply to affected area once daily. naproxen sodium 220 mg cap Take 1 capsule by mouth as needed. ERGOCALCIFEROL, VITAMIN D2, (VITAMIN D ORAL) Take 2,000 mcg by mouth once daily. ASPIRIN 81 MG TAB Take one(1) tablet daily. OCUVITE TAB Take one tablet daily ONE DAILY MULTI-VITAMIN TAB Take one(1) tablet daily. No current facility-administered medications on file prior to visit. Social History Social History Tobacco Use Smoking status: Never Smokeless tobacco: Never Vaping Use Vaping Use: Never used Substance Use Topics Alcohol use: Yes Alcohol/week: 2.0 standard drinks Types: 2 Glasses of wine per week Comment: occasionally Drug use: No Review of Symptoms REVIEW OF SYSTEMS GENERAL: No weight loss, malaise or fevers HEENT: Negative for frequent or significant headaches, No changes in hearing no nose bleeds or other nasal problems. Has chronic decreased vision. NECK: Negative for lumps, goiter, pain and significant neck swelling. Has been getting some small red spots that resolve on there on. Do not itch. Tends to get them on the upper arms, chest and neck. RESPIRATORY: Negative for cough, hemoptysis, wheezing, COPD, dyspnea or shortness of breath CARDIOVASCULAR: Negative for chest pain, leg swelling, hypertension, CHF. Occasional asymptomatic palpitations GI: No nausea, vomiting, or changes in her chronic diarrhea and No heartburn or reflux symptoms. No blood. : No history of dysuria, blood MUSCULOSKELETAL: low back and knees at times. SKIN: see neck section PSYCH: Negative for sleep disturbance, mood disorder and recent psychosocial stressors HEMATOLOGY/LYMPHOLOGY: Negative for prolonged bleeding, bruising easily or swollen nodes ENDOCRINE: Negative for cold or heat intolerance, polyuria, polydipsia and goiter NEURO: No history of headaches, syncope, paralysis, seizures or tremors EXAM: BP (P) 126/74 (BP Site: Right Arm, BP Position: Sitting, BP Cuff Size: Large Adult) Pulse (P) 70 Ht (P) 161.3 cm (5' 3.5 ) Wt (P) 78 kg (172 lb) BMI (P) 29.99 kg/m Last 4 Encounter Wt Readings: Date: Wt: 01/12/2022 78.9 kg (174 lb) 01/05/2022 79.1 kg (174 lb 6.4 oz) 07/11/2021 79.4 kg (175 lb) 07/22/2020 78.9 kg (174 lb) General Appearance: Well appearing, alert, in no acute distress, well-hydrated, well nourished. and Overweight. Skin: Skin color, texture, turgor normal, there are small petechia. Head: Normocephalic, no masses, lesions, tenderness or abnormalities. Eyes: Anicteric sclera. Pupils are equally round and reactive to light. Extraocular movements are intact. . Ears: External ears, TM's normal, canals clear. Nose/Sinuses: Nares normal, septum midline, mucosa normal, no drainage or sinus tenderness. Oropharynx: Lips, mucosa, and tongue normal, teeth and gums normal, oropharynx normal. Neck: Supple, no adenopathy; thyroid symmetric, normal size, no bruits. Lungs: Lungs clear to auscultation. No wheezing, rhonchi, rales.. Heart: RRR without murmur, gallop, or rubs. No ectopy. Abdomen: Normal abdominal exam, Abdomen soft, non-tender. Bowel sounds normal. No masses, organomegaly. Good capillary refill. . Musculoskeletal: Muscular strength intact, No joint swelling, deformity, or tenderness. Peripheral Pulses: Normal. Neurologic: Gait normal. Reflexes normal and symmetric. Sensation to light touch and crainal nerves 2-12 intact.. Health Maintenance List DTAP,TDAP,TD(3 - Tdap) due on 04/21/2020 ADVANCE DIRECTIVE DISCUSSION due on 03/29/2022 DEPRESSION ASSESSMENT due on 03/29/2022 BP CONTROLLED (<130/80) due on 07/11/2022 ANNUAL PCP TEAM CHRONIC DISEASE VISIT due on 01/12/2023 DIABETES SCREEN due on 07/22/2025 BONE DENSITY Completed INFLUENZA Completed SHINGRIX VACCINE Completed COVID-19 VACCINE Completed PNEUMOCOCCAL: 65+ Completed SPIROMETRY Discontinued Data reviewed Component Latest Ref Rng & Units 07/05/2021 12/29/2021 07/22/2022 WBC 3.70 - 11.00 k/uL 6.70 7.59 RBC 3.90 - 5.20 m/uL 4.61 4.44 Hemoglobin 11.5 - 15.5 g/dL 15.1 14.4 Hematocrit 36.0 - 46.0 % 46.2 (H) 43.4 MCV 80.0 - 100.0 fL 100.2 (H) 97.7 MCH 26.0 - 34.0 pg 32.8 32.4 MCHC 30.5 - 36.0 g/dL 32.7 33.2 RDW-CV 11.5 - 15.0 % 12.9 13.1 Platelet Count 150 - 400 k/uL 283 254 MPV 9.0 - 12.7 fL 11.1 11.2 Neut% % 68.4 64.1 Abs Neut (ANC) 1.45 - 7.50 k/uL 4.58 4.87 Lymph% % 17.5 19.5 Abs Lymph 1.00 - 4.00 k/uL 1.17 1.48 [place]% % 9.7 11.7 Abs [place] <0.87 k/uL 0.65 0.89 (H) Eosin% % 2.8 3.2 Abs Eosin <0.46 k/uL 0.19 0.24 Baso% % 1.3 1.2 Abs Baso <0.11 k/uL 0.09 0.09 Immature Gran % % 0.3 0.3 IMMATURE GRANS (ABS) <0.10 k/uL <0.03 <0.03 NRBC /100 WBC 0.0 0.0 Absolute nRBC <0.01 k/uL <0.01 <0.01 DTYPE Auto Auto Protein, Total 6.3 - 8.0 g/dL 7.3 6.7 Albumin 3.9 - 4.9 g/dL 4.5 4.4 Calcium 8.5 - 10.2 mg/dL 9.8 9.4 Bilirubin, Total 0.2 - 1.3 mg/dL 0.4 0.6 Alkaline Phosphatase 34 - 123 U/L 82 84 AST 13 - 35 U/L 27 23 ALT 7 - 38 U/L 23 16 Glucose 74 - 99 mg/dL 87 92 BUN 7 - 21 mg/dL 21 21 Creatinine 0.58 - 0.96 mg/dL 0.85 0.93 Sodium 136 - 144 mmol/L 140 143 Potassium 3.7 - 5.1 mmol/L 4.3 4.6 Chloride 97 - 105 mmol/L 102 103 CO2 22 - 30 mmol/L 26 29 Anion Gap 9 - 18 mmol/L 12 11 eGFR >=60 mL/min/1.73m 70 62 Color Yellow Yellow Yellow Clarity Clear Slightly Cloudy (A) Clear Glucose, Urine Trace, Negative Negative Negative Bilirubin, Urine Negative Negative Negative Ketones, Urine Trace, Negative Negative Negative Specific [place], Ur 1.005 - 1.030 1.020 1.030 Hemoglobin/Blood,Ur Negative, Trace Negative Negative pH, Urine 5.0 - 8.0 5.0 6.0 Protein, Urine Trace, Negative Negative 1+ (A) Urobilinogen Negative Negative 1+ (A) Nitrites Negative Negative Negative Leukest Negative, 25 Aaron/uL Negative 25 Aaron/uL WBC, Urine 0-5 /HPF 0-5 /HPF 0-5 /HPF RBC, Urine 0-3 /HPF 0-3 /HPF 3-5 /HPF (A) Epithelial Cells /HPF Few Few Total Cholesterol, Nonfasting <200 mg/dL 177 177 155 Triglycerides, Nonfasting <150 mg/dL 148 105 114 HDL Cholesterol, Nonfasting >39 mg/dL 67 69 68 LDL Cholesterol, Nonfasting <100 mg/dL 80 87 64 Non HDL Cholesterol, Nonfasting <130 mg/dL 110 108 87 VLDL Cholesterol, Nonfasting <30 mg/dL 30 (H) 21 23 Total Chol/HDL Ratio, Nonfasting <5.10 mg/dL 2.64 2.57 2.28 LDL/HDL Ratio, Nonfasting <2.54 mg/dL 1.19 1.26 0.94 Vitamin B12 232-1,245 pg/mL 416 Magnesium 1.7 - 2.3 mg/dL 1.8 1.7 A/P ASSESSMENT/PLAN: 1. Medicare annual wellness visit, subsequent - ICD9: V70.0, ICD10: Z00.00 (primary diagnosis) - Counseled on healthy diet and regular exercise - Calcium intake with supplements or by diet of 1000 mg/day for under 50, 1211-8171 mg/day for 50+ - Patient was counseled [id number] by myself (the billing provider) for the following immunizations and vaccine components, including side effects: Pneumococcal . Patient consents for immunization and understands risks and benefits. A VIS sheet on each immunization was given to the patient. - Follow up for annual exam in one year 2. Essential hypertension - ICD9: 401.9, ICD10: I10 - good control - Continue current medication(s) - Recommended regular aerobic exercise. - Recommend home blood pressure monitoring, to bring results in on next visit - Goal of BP <130/80 3. Hyperlipidemia, mixed - ICD9: 272.2, ICD10: E78.2 - good control - Encouraged following a low fat, low cholesterol diet. - Discussed the benefits of regular aerobic exercise and weight loss. - Encouraged following a low carbohydrate, healthy oil intake diet. - Continue current therapy. 4. GERD without esophagitis - ICD9: 530.81, ICD10: K21.9 - Continue treatment with Prilosec 20 mg QD 5. 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 - ICD9: 493.90, ICD10: J45.20 Mild intermittent Asthma stable - Continue current meds - Avoidance of triggers recommended 6. Ocular migraine - ICD9: 346.80, ICD10: G43.109 - clinically stable. No changes. 7. Irritable bowel syndrome, unspecified type - ICD9: 564.1, ICD10: K58.9 - stable, no changes. 8. Petechiae - ICD9: 782.7, ICD10: R23.3 Check - ACTIVATED PTT - PROTHROMBIN TIME/PHYSICAL THERAPY Advised patient to make an appt with her Personnel Research Psychologist at [facility] 9. Advance directive discussed with patient - ICD9: V65.49, ICD10: Z71.89 - patient to bring in copies. 10. Need for vaccination - ICD9: V05.9, ICD10: Z23 - PNEUMOCOCCAL VACCINE (PREVNAR 20): given 11. Pain in both knees, unspecified chronicity - ICD9: 719.46, ICD10: M25.561, M25.562 Check - XR KNEE GENERAL 4V AP BOTH/PA BOTH/LAT/MERC BILATERAL F/u in a year for extensive or sooner if issues. I spent a total of 40 minutes on the date of the service which included preparing to see the patient, [id number] patient care, completing clinical documentation, performing a medically appropriate examination, counseling and educating the patient/family/caregiver and ordering medications, tests, or procedures. Elizabeth Schmidt MD documented in this encounter [facility] 07-14-2022 Miscellaneous Notes The following approved medication requests have been transmitted electronically. Requested Prescriptions Signed Prescriptions Disp Refills atorvastatin (LIPITOR) 10 mg tablet 90 tablet 1 Sig: Take 1 tablet by mouth once daily. Authorizing Provider: ELIZABETH SCHMIDT lisinopril (ZESTRIL) 20 mg tablet 90 tablet 1 Sig: Take 1 tablet by mouth once daily. Authorizing Provider: ELIZABETH SCHMIDT omeprazole (PRILOSEC) 20 mg capsule 90 capsule 1 Sig: Take 1 capsule by mouth daily before breakfast. 1/2 hr before meal. Authorizing Provider: ELIZABETH SCHMIDT MD Patient last visit 01/12/22 Follow up appointment scheduled 07/29/22 Erica Thomas Ma Patient has been identified by name and date of : Yes Requested Prescriptions Pending Prescriptions Disp Refills atorvastatin (LIPITOR) 10 mg tablet 90 tablet 1 Sig: Take 1 tablet by mouth once daily. lisinopril (ZESTRIL) 20 mg tablet 90 tablet 1 Sig: Take 1 tablet by mouth once daily. omeprazole (PRILOSEC) 20 mg capsule 90 capsule 1 Sig: Take 1 capsule by mouth daily before breakfast. 1/2 hr before meal. RX INSTRUCTIONS: Patient aware RX will be sent to pharmacy. No need to notify patient. Laina Hernandez Pss documented in this encounter [facility] 05-20-2022 Miscellaneous Notes The following approved medication requests have been transmitted electronically. Requested Prescriptions Signed Prescriptions Disp Refills hydroCHLOROthiazide (HYDRODIURIL, ESIDRIX) 12.5 mg capsule 90 capsule 1 Sig: Take 1 capsule by mouth once daily. Authorizing Provider: ELIZABETH SCHMIDT MD Patient has been identified by name and date of : Yes Requested Prescriptions Pending Prescriptions Disp Refills hydroCHLOROthiazide (HYDRODIURIL, ESIDRIX) 12.5 mg capsule 90 capsule 3 Sig: Take 1 capsule by mouth once daily. RX INSTRUCTIONS: Patient aware RX will be sent to pharmacy. No need to notify patient. Libby Leal MA Radha: 12/2021 Nov; 07/2022 Last refill: 04/2021 Patient has been identified by name and date of : Yes Requested Prescriptions Pending Prescriptions Disp Refills hydroCHLOROthiazide (HYDRODIURIL, ESIDRIX) 12.5 mg capsule 90 capsule 3 Sig: Take 1 capsule by mouth once daily. RX INSTRUCTIONS: Patient is out of medication Patient aware RX will be sent to pharmacy. No need to notify patient. Akanksha Bowers documented in this encounter [facility] 01-05-2022 Instructions Liliana Skinner APRN.CLINICAL NURSE OCCUPATIONAL MEDICINE - 01/05/2022 8:46 AM EDT ASSESSMENT/PLAN: 1. Foot pain, right - ICD9: 729.5, ICD10: M79.671 (primary diagnosis) - XR FOOT GENERAL 3V AP/LAT/OBL RIGHT Radiologist FINDINGS: No acute fractures or subluxations are noted. Tarsometatarsal joint space narrowing is demonstrated, predominantly involving the second and third tarsometatarsal joints, with osteophyte formation. There is calcaneal enthesophyte formation. The bones are somewhat osteopenic. There is no significant soft tissue swelling. IMPRESSION: Degenerative changes in the mid foot as described above. Vp: KATELYNN Transcribe Date/Time: Jan 05 2022 8:37A Dictated by : AUDREY FERNANDEZ MD 2. Tendonitis of ankle or foot - ICD9: 727.06, ICD10: M77.50 - prednisone as prescribed. - if not improving, follow up with podiatry. Liliana Skinner APRN.CLINICAL NURSE OCCUPATIONAL MEDICINE documented in this encounter [facility] 01-05-2022 History of Presen t illness Narrative Subjective Ankle Pain Pertinent negatives include no chills, fever or rash. John Benson is a 81 year old female who presents with right foot pain. She states she has had this pain for years but it is much worse in the past 2 days. She denies any injury to the foot. Review of Systems Constitutional: Negative for chills and fever. Musculoskeletal: Positive for joint pain. Negative for falls. Skin: Negative for itching and rash. 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 01/03/2015 Diverticulosis of colon (without mention of hemorrhage) Essential hypertension 07/11/2008 GERD without esophagitis 03/30/2006 History of basal cell carcinoma chest Hyperlipidemia, mixed 09/25/2015 IBS (irritable bowel syndrome) diarrhea Lichen planus 05/06/[address] 07/11/2021 DPA: Enedelia () Macular degeneration, dry Medicare annual wellness visit, subsequent 07/11/2021 Medicare part B: 07/27/2006 Last done: 07/11/2021 Neurofibroma 06/10/2018 right anterior chest wall Ocular migraine Rosacea PAST SURGICAL HISTORY Procedure Laterality Date ADENOIDECTOMY PRIMARY <AGE 13 COLON SURGERY HX COLONOSCOPY FLX DX W/COLLJ SPEC WHEN PFRMD 12/06/2006 Repeat due 2016 COLONOSCOPY FLX DX W/COLLJ SPEC WHEN PFRMD 01/23/2020 Colonoscopy ESOPHAGOGASTRODUODENOSCOPY TRANSORAL DIAGNOSTIC 01/23/2020 EGD LAPS COLECTOMY PRTL W/RMVL TERMINAL ILEUM 05/11/14 Laparoscopic Right Hemicolectomy/Liver biopsy/Repair duodenal serosal tear SIGMOIDOSCOPY FLX DX W/COLLJ SPEC BR/WA IF PFRMD 09/2000 SKIN BIOPSY HX TONSILLECTOMY HX TONSILLECTOMY PRIMARY/SECONDARY <AGE 13 ALLERGIES Environmental [Other] and Meloxicam MEDICATIONS omeprazole (PRILOSEC) 20 mg capsule Take 1 capsule by mouth daily before breakfast. 1/2 hr before meal. lisinopril (ZESTRIL, PRINIVIL) 20 mg tablet Take 1 tablet by mouth once daily. atorvastatin (LIPITOR) 10 mg tablet Take 1 tablet by mouth once daily. hydroCHLOROthiazide 12.5 mg capsule Take 1 capsule by mouth once daily. ubidecarenone (CO Q-10 ORAL) Take by mouth. albuterol HFA (PROAIR HFA) 90 mcg/actuation inhaler INHALE 2 PUFFS INTO THE LUNGS INSTRUCTED EVERY 4 HOURS NEEDED FOR WHEEZING/SOB mometasone (ELOCON) 0.1 % cream Apply to affected area once daily. naproxen sodium 220 mg cap Take 1 capsule by mouth as needed. ERGOCALCIFEROL, VITAMIN D2, (VITAMIN D ORAL) Take 2,000 mcg by mouth once daily. ASPIRIN 81 MG TAB Take one(1) tablet daily. OCUVITE TAB Take one tablet daily ONE DAILY MULTI-VITAMIN TAB Take one(1) tablet daily. FAMILY HISTORY Problem Relation Age of Onset Heart Mother atrial fibrillation Arthritis Mother Alzheimer's Disease Mother other (TIA) Mother other (macular degeneration) Mother wet Ischemic Heart Disease Father other (macular degeneration) Father dry Ischemic Heart Disease Brother 58 other (macular degeneration) Brother Heart disease Brother Prostate Cancer Brother Diabetes Maternal Grandmother Heart Paternal Grandfather Colon Cancer Maternal Aunt Multiple Sclerosis Grandchild Social History Tobacco Use Smoking status: Never Smokeless tobacco: Never Vaping Use Vaping Use: Never used Substance Use Topics Alcohol use: Yes Alcohol/week: 2.0 standard drinks Types: 2 Glasses of wine per week Comment: occasionally Drug use: No Objective Physical Exam Vitals and nursing note reviewed. Constitutional: Appearance: Normal appearance. Musculoskeletal: General: Tenderness present. No swelling, deformity or signs of injury. Normal range of motion. Right lower leg: No edema. Skin: General: Skin is warm and dry. Findings: No bruising, erythema or rash. Neurological: Mental Status: She is alert. ASSESSMENT/PLAN: 1. Foot pain, right - ICD9: 729.5, ICD10: M79.671 (primary diagnosis) - XR FOOT GENERAL 3V AP/LAT/OBL RIGHT Radiologist FINDINGS: No acute fractures or subluxations are noted. Tarsometatarsal joint space narrowing is demonstrated, predominantly involving the second and third tarsometatarsal joints, with osteophyte formation. There is calcaneal enthesophyte formation. The bones are somewhat osteopenic. There is no significant soft tissue swelling. IMPRESSION: Degenerative changes in the mid foot as described above. Vp: KATELYNN Transcribe Date/Time: Jan 05 2022 8:37A Dictated by : AUDREY FERNANDEZ MD 2. Tendonitis of ankle or foot - ICD9: 727.06, ICD10: M77.50 - prednisone as prescribed. - if not improving, follow up with podiatry. 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 following gastrointestinal surgery 01/03/2015 Diverticulosis of colon (without mention of hemorrhage) Essential hypertension 07/11/2008 GERD without esophagitis 03/30/2006 History of basal cell carcinoma chest Hyperlipidemia, mixed 09/25/2015 IBS (irritable bowel syndrome) diarrhea Lichen planus 05/06/[address] 07/11/2021 DPA: Enedelia () Macular degeneration, dry Medicare annual wellness visit, subsequent 07/11/2021 Medicare part B: 07/27/2006 Last done: 07/11/2021 Neurofibroma 06/10/2018 right anterior chest wall Ocular migraine Rosacea PAST SURGICAL HISTORY Procedure Laterality Date ADENOIDECTOMY PRIMARY <AGE 13 COLON SURGERY HX COLONOSCOPY FLX DX W/COLLJ SPEC WHEN PFRMD 12/06/2006 Repeat due 2016 COLONOSCOPY FLX DX W/COLLJ SPEC WHEN PFRMD 01/23/2020 Colonoscopy ESOPHAGOGASTRODUODENOSCOPY TRANSORAL DIAGNOSTIC 01/23/2020 EGD LAPS COLECTOMY PRTL W/RMVL TERMINAL ILEUM 05/11/14 Laparoscopic Right Hemicolectomy/Liver biopsy/Repair duodenal serosal tear SIGMOIDOSCOPY FLX DX W/COLLJ SPEC BR/WA IF PFRMD 09/2000 SKIN BIOPSY HX TONSILLECTOMY HX TONSILLECTOMY PRIMARY/SECONDARY <AGE 13 ALLERGIES: Environmental [Other] and Meloxicam Medications reviewed: Yes FAMILY HISTORY Problem Relation Age of Onset Heart Mother atrial fibrillation Arthritis Mother Alzheimer's Disease Mother other (TIA) Mother other (macular degeneration) Mother wet Ischemic Heart Disease Father other (macular degeneration) Father dry Ischemic Heart Disease Brother 58 other (macular degeneration) Brother Heart disease Brother Prostate Cancer Brother Diabetes Maternal Grandmother Heart Paternal Grandfather Colon Cancer Maternal Aunt Multiple Sclerosis Grandchild SOCIAL HISTORY: Social History Tobacco Use Smoking status: Never Smoker Smokeless tobacco: Never Used Vaping Use Vaping Use: Never used Substance Use Topics Alcohol use: Yes Alcohol/week: 2.0 standard drinks Types: 2 Glasses of wine per week Comment: occasionally Drug use: No John works out regularly 3 times per week with resistance training. She watches her diet for sodium, low fat and low cholesterol most of the time. List of current specialists seen: Dr. Heart (ortho [place] [facility] (Derm) End of Live Planning discussed including patients advanced directive wishes: Yes I am willing to follow John's advanced directives. PHQ-2 / Depression screen Depression Screening 09/25/2015 05/19/2017 05/24/2018 07/11/2021 PHQ-2 Score 0 0 0 0 Depression screening tool completed and reviewed. Based on score and interview, patient is not at risk for depression. Screening tool discussed with patient, and I recommended no further intervention at this time. Functional Ability/Safety Screen 1. Was the patient's timed Up and Go test unsteady or longer than 30 seconds? No 2. Does the patient need help with the phone, transportation, shopping,preparing meals, housework, laundry, medications or managing money? No 3. Does your home have rugs in the hallway, lack of grab bars in the bathroom, lack of handrails on the stairs or have poor lighting? No Hearing Evaluation: normal PHYSICAL EXAM BP 122/80 Pulse 68 Resp 12 Ht 161 cm (5' 3.39 ) Wt 79.4 kg (175 lb) BMI 30.62 kg/m Alert and oriented X 3: YES Body mass index is 30.62 kg/m . Visual acuity: seeing Optho See below ASSESSMENT/PLAN: 80 year old female The following prevention plan was discussed during the office visit and provided to the patient: See Below Elizabeth Schmidt MD Chief Complaint Patient presents with: Medicare Wellness Exam HPI John Benson is a 80 year old female who presents here today for Medicare Annual Visit. Patient has concern of bilateral knee pain. Has seen Dr. Heart in past who did steroid injection and suggested bilateral knee replacement. Patient aware to get back in with provider. Patient does see [facility] for Eczema and skin checks. Past medical history, appointments, medications, allergies reviewed. Previous Medical History PAST MEDICAL HISTORY Diagnosis Date Arthritis Arthritis of left knee 01/03/2015 Asthmatic bronchitis 09/25/2015 CKD (chronic kidney disease) stage 3, GFR 30-59 ml/min ([facility]) 10/02/2015 Colonic mass 05/11/14 microperforation COPD (chronic obstructive pulmonary disease) ([facility]) Asthma? 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 following gastrointestinal surgery 01/03/2015 Diverticulosis of colon (without mention of hemorrhage) Esophageal reflux Essential hypertension 07/11/2008 Generalized osteoarthrosis, unspecified site knees and right hip GERD without esophagitis 03/30/2006 History of basal cell carcinoma chest Hyperlipidemia high HDL, FHx CAD Hyperlipidemia, mixed 09/25/2015 HYPERTENSION NOS IBS (irritable bowel syndrome) diarrhea Lichen planus 05/06/2020 Macular degeneration, dry Neurofibroma 06/10/2018 right anterior chest wall Ocular migraine Rosacea Previous Surgical History PAST SURGICAL HISTORY Procedure Laterality Date ADENOIDECTOMY PRIMARY <AGE 13 COLON SURGERY HX COLONOSCOPY FLX DX W/COLLJ SPEC WHEN PFRMD 12/06/2006 Repeat due 2016 COLONOSCOPY FLX DX W/COLLJ SPEC WHEN PFRMD 01/23/2020 Colonoscopy ESOPHAGOGASTRODUODENOSCOPY TRANSORAL DIAGNOSTIC 01/23/2020 EGD LAPS COLECTOMY PRTL W/RMVL TERMINAL ILEUM 05/11/14 Laparoscopic Right Hemicolectomy/Liver biopsy/Repair duodenal serosal tear SIGMOIDOSCOPY FLX DX W/COLLJ SPEC BR/WA IF PFRMD 09/2000 SKIN BIOPSY HX TONSILLECTOMY HX TONSILLECTOMY PRIMARY/SECONDARY <AGE 13 Family History FAMILY HISTORY Problem Relation Age of Onset Heart Mother atrial fibrillation Arthritis Mother Alzheimer's Disease Mother other (TIA) Mother other (macular degeneration) Mother wet Ischemic Heart Disease Father other (macular degeneration) Father dry Ischemic Heart Disease Brother 58 Diabetes Maternal Grandmother Colon Cancer Maternal Aunt other (macular degeneration) Brother Heart Paternal Grandfather Multiple Sclerosis Grandchild Patient Allergies ALLERGIES Allergen Reactions Environmental [Othe* Meloxicam GI Upset Current Medications Current Outpatient Medications on File Prior to Visit Medication Sig hydroCHLOROthiazide 12.5 mg capsule Take 1 capsule by mouth once daily. omeprazole (PRILOSEC) 20 mg capsule Take 1 capsule by mouth daily before breakfast. 1/2 hr before meal. lisinopril (ZESTRIL, PRINIVIL) 20 mg tablet Take 1 tablet by mouth once daily. atorvastatin (LIPITOR) 10 mg tablet Take 1 tablet by mouth once daily. ubidecarenone (CO Q-10 ORAL) Take by mouth. albuterol HFA (PROAIR HFA) 90 mcg/actuation inhaler INHALE 2 PUFFS INTO THE LUNGS INSTRUCTED EVERY 4 HOURS NEEDED FOR WHEEZING/SOB mometasone (ELOCON) 0.1 % cream Apply to affected area once daily. naproxen sodium (ALEVE) 220 mg cap Take 1 capsule by mouth as needed. ERGOCALCIFEROL, VITAMIN D2, (VITAMIN D ORAL) Take 2,000 mcg by mouth once daily. ASPIRIN 81 MG TAB Take one(1) tablet daily. OCUVITE TAB Take one tablet daily ONE DAILY MULTI-VITAMIN TAB Take one(1) tablet daily. No current facility-administered medications on file prior to visit. Social History Social History Tobacco Use Smoking status: Never Smoker Smokeless tobacco: Never Used Vaping Use Vaping Use: Never used Substance Use Topics Alcohol use: Yes Alcohol/week: 2.0 standard drinks Types: 2 Glasses of wine per week Comment: occasionally Drug use: No Review of Symptoms REVIEW OF SYSTEMS GENERAL: No weight loss, malaise or fevers HEENT: Negative for frequent or significant headaches, No changes in hearing. has macular degeneration, no nose bleeds or other nasal problems NECK: Negative for lumps, goiter, pain and significant neck swelling RESPIRATORY: Negative for cough, hemoptysis, on occasion will have wheezing, COPD, dyspnea or shortness of breath and will use her rescue inhaler. No nocturnal symptoms CARDIOVASCULAR: Negative for chest pain, leg swelling, hypertension, CHF or palpitations GI: No nausea, vomiting, No heartburn or reflux symptoms and no blood. 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 : No history of dysuria, blood MUSCULOSKELETAL: some knee pain and seeing Ortho SKIN: Negative for lesions, rash, and itching. Seeing Derm PSYCH: Negative for sleep disturbance, mood disorder and recent psychosocial stressors HEMATOLOGY/LYMPHOLOGY: Negative for prolonged bleeding, bruising easily or swollen nodes ENDOCRINE: Negative for cold or heat intolerance, polyuria, polydipsia and goiter NEURO: No history of headaches, syncope, paralysis, seizures or tremors EXAM: BP 122/80 Pulse 68 Resp 12 Ht 161 cm (5' 3.39 ) Wt 79.4 kg (175 lb) BMI 30.62 kg/m Last 4 Encounter Wt Readings: Date: Wt: 07/11/2021 79.4 kg (175 lb) 07/22/2020 78.9 kg (174 lb) 05/06/2020 78 kg (172 lb) 01/09/2020 78.5 kg (173 lb) General Appearance: Well appearing, alert, in no acute distress, well-hydrated, well nourished.. Skin: Skin color, texture, turgor normal, no suspicious rashes or lesions. Seeing Derm also Head: Normocephalic, no masses, lesions, tenderness or abnormalities. Eyes: Anicteric sclera. Pupils are equally round and reactive to light. Extraocular movements are intact. . Ears: External ears, TM's normal, canals clear. Neck: Supple, no adenopathy; thyroid symmetric, normal size, no bruits. Lungs: Lungs clear to auscultation. No wheezing, rhonchi, rales.. Heart: RRR without murmur, gallop, or rubs. No ectopy. Abdomen: Normal abdominal exam, Abdomen soft, non-tender. Bowel sounds normal. No masses, organomegaly. Extremities: No deformities, edema, skin discoloration. Musculoskeletal: Muscular strength intact, No joint swelling, deformity, or tenderness. Peripheral Pulses: Normal. Neurologic: Gait normal. Reflexes normal and symmetric. Sensation to light touch and crainal nerves 2-12 intact.. Health Maintenance List SPIROMETRY Never done DTAP,TDAP,TD(3 - Tdap) due on 04/21/2020 ADVANCE DIRECTIVE DISCUSSION Never done ANNUAL PCP TEAM CHRONIC DISEASE VISIT due on 07/22/2021 BP CONTROLLED (<130/80) due on 07/22/2021 DEPRESSION SCREENING due on 07/22/2021 DIABETES SCREEN due on 07/05/2024 BONE DENSITY Completed INFLUENZA Completed PNEUMOVAX AGE 65 AND OVER WITH 5YR LOOKBACK Completed SHINGRIX VACCINE Completed COVID-19 VACCINE Completed MENINGOCOCCAL CONJUGATE Aged Out Data reviewed Component Latest Ref Rng & Units 04/09/2020 07/16/2020 07/05/2021 WBC 3.70 - 11.00 k/uL 7.28 6.70 RBC 3.90 - 5.20 m/uL 4.46 4.61 Hemoglobin 11.5 - 15.5 g/dL 14.6 15.1 Hematocrit 36.0 - 46.0 % 44.6 46.2 (H) MCV 80.0 - 100.0 fL 100.0 100.2 (H) MCH 26.0 - 34.0 pg 32.7 32.8 MCHC 30.5 - 36.0 g/dL 32.7 32.7 RDW-CV 11.5 - 15.0 % 13.1 12.9 Platelet Count 150 - 400 k/uL 287 283 MPV 9.0 - 12.7 fL 10.7 11.1 Neut% % 68.4 Abs Neut (ANC) 1.45 - 7.50 k/uL 4.58 Lymph% % 17.5 Abs Lymph 1.00 - 4.00 k/uL 1.17 [place]% % 9.7 Abs [place] <0.87 k/uL 0.65 Eosin% % 2.8 Abs Eosin <0.46 k/uL 0.19 Baso% % 1.3 Abs Baso <0.11 k/uL 0.09 Immature Gran % % 0.3 IMMATURE GRANS (ABS) <0.10 k/uL <0.03 NRBC /100 WBC 0.0 Absolute nRBC <0.01 k/uL <0.01 <0.01 DTYPE Auto Protein, Total 6.3 - 8.0 g/dL 7.2 7.3 Albumin 3.9 - 4.9 g/dL 4.9 4.5 Calcium 8.5 - 10.2 mg/dL 9.7 9.8 Bilirubin, Total 0.2 - 1.3 mg/dL 0.5 0.4 Alkaline Phosphatase 34 - 123 U/L 87 82 AST 13 - 35 U/L 29 27 Glucose 74 - 99 mg/dL 93 87 BUN 7 - 21 mg/dL 18 21 Creatinine 0.58 - 0.96 mg/dL 0.86 0.85 Sodium 136 - 144 mmol/L 140 140 Potassium 3.7 - 5.1 mmol/L 4.1 4.3 Chloride 97 - 105 mmol/L 99 102 CO2 22 - 30 mmol/L 30 26 Anion Gap 9 - 18 mmol/L 11 12 ALT 7 - 38 U/L 24 23 eGFR- >60 eGFR-All Other Races . >60 eGFR >=60 mL/min/1.73m 70 Color Yellow Yellow Clarity Clear Slightly Cloudy (A) Glucose, Urine Negative Negative Bilirubin, Urine Negative Negative Ketones, Urine Negative Negative Specific [place], Ur 1.005 - 1.030 1.020 Hemoglobin/Blood,Ur Negative Negative pH, Urine 5.0 - 8.0 5.0 Protein, Urine Negative Negative Urobilinogen Negative Negative Nitrites Negative Negative Leukest Negative Negative WBC, Urine 0-5 /HPF 0-5 /HPF RBC, Urine 0-3 /HPF 0-3 /HPF Epithelial Cells /HPF Few Cholesterol, Total <200 mg/dL 184 Triglyceride <150 mg/dL 90 HDL Cholesterol >39 mg/dL 80 LDL Cholesterol <100 mg/dL 86 Non HDL Cholesterol <130 mg/dL 104 Fasting Time hrs 12 VLDL Cholesterol <30 mg/dL 18 TC:HDL Ratio <5.10 2.30 LDL:HDL Ratio <2.54 1.08 Total Cholesterol, Nonfasting <200 mg/dL 177 Triglycerides, Nonfasting <150 mg/dL 148 HDL Cholesterol, Nonfasting >39 mg/dL 67 LDL Cholesterol, Nonfasting <100 mg/dL 80 Non HDL Cholesterol, Nonfasting <130 mg/dL 110 VLDL Cholesterol, Nonfasting <30 mg/dL 30 (H) Total Chol/HDL Ratio, Nonfasting <5.10 mg/dL 2.64 LDL/HDL Ratio, Nonfasting <2.54 mg/dL 1.19 Vitamin B12 232-1,245 pg/mL 416 Magnesium 1.7 - 2.3 mg/dL 1.8 A/P ASSESSMENT/PLAN: 1. Medicare annual wellness visit, subsequent - ICD9: V70.0, ICD10: Z00.00 (primary diagnosis) - Counseled on healthy diet and regular exercise - Calcium intake with supplements or by diet of 1000 mg/day for under 50, 6392-7024 mg/day for 50+ - Follow up for annual exam in one year 2. Essential hypertension - ICD9: 401.9, ICD10: I10 - good control - Continue current medication(s) - Recommended regular aerobic exercise. - Recommend home blood pressure monitoring, to bring results in on next visit - Goal of BP <130/80 3. Hyperlipidemia, mixed - ICD9: 272.2, ICD10: E78.2 - good control - Continue current medication. - Encouraged following a low fat, low cholesterol diet. - Discussed the benefits of regular aerobic exercise and weight loss. - Encouraged following a low carbohydrate, healthy oil intake diet. 4. GERD without esophagitis - ICD9: 530.81, ICD10: K21.9 - Continue treatment with Prilosec 20 mg QD 5. Ocular migraine - ICD9: 346.80, ICD10: G43.109 - Clinically stable 6. 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 - ICD9: 493.90, ICD10: J45.20 Mild intermittent Asthma stable - Continue current meds - Avoidance of triggers recommended 7. Irritable bowel syndrome, unspecified type - ICD9: 564.1, ICD10: K58.9 - Stable 8. Living will in place - ICD9: V49.89, ICD10: Z78.9 - Advised to bring in copies 9. Advance directive discussed with patient - ICD9: V65.49, ICD10: Z71.89 - As per #8 Signed Prescriptions Disp Refills omeprazole (PRILOSEC) 20 mg capsule 90 capsule 1 Sig: Take 1 capsule by mouth daily before breakfast. 1/2 hr before meal. LANEY: No lisinopril (ZESTRIL, PRINIVIL) 20 mg tablet 90 tablet 1 Sig: Take 1 tablet by mouth once daily. LANEY: No atorvastatin (LIPITOR) 10 mg tablet 90 tablet 1 Sig: Take 1 tablet by mouth once daily. LANEY: No F/u 6 months routine check lipid prior I spent a total of 40 minutes on the date of the service which included preparing to see the patient, [id number] patient care, completing clinical documentation, performing a medically appropriate examination, counseling and educating the patient/family/caregiver and ordering medications, tests, or procedures. Elizabeth Schmidt MD documented in this encounter [facility] 07-11-2021 Instructions Elizabeth Schmidt MD - 07/11/2021 9:40 AM EDT Bring in copy of living will and power of assistant county attorney for health care for you and spouse. Consider dong Debrox in your ear 1-2 times a week Please get lab done on or after 12/26/2021 prior to your next visit. documented in this encounter [facility] documented as of this encounter (statuses as of 07/12/2021) [facility] History of Past illness Narrative* Problem Noted Date Resolved Date Impaired fasting glucose 10/04/2016 019 CKD (chronic kidney disease) stage 3, GFR 30-59 ml/min 10/02/2015 05/24/2018 AC (acromioclavicular) joint arthritis 0 2009 Rotator cuff tendinitis 07/09/2009 05/19/19 18 Obesity, unspecified 12/05/2007 2009 Elevated blood pressure read ing without diagnosis of hypertension 12/05/2007 07/11/2008 Radial styloid tenosynovitis 11/19/2006 Exostosis of unspecified site 05/06/2006 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 09/01/2005 12/05/2007 documented as of this encounter (statuses as of 01/05/2022) [facility] History of Past illness Narrative* Problem Noted Date Resolved Date Impaired fasting glucose 10/04/2016 019 CKD (chronic kidney disease) stage 3, GFR 30-59 ml/min 10/02/2015 05/24/2018 AC (acromioclavicular) joint arthritis 0 2009 Rotator cuff tendinitis 07/09/2009 05/19/19 18 Obesity, unspecified 12/05/2007 2009 Elevated blood pressure read ing without diagnosis of hypertension 12/05/2007 07/11/2008 Radial styloid tenosynovitis 11/19/2006 Exostosis of unspecified site 05/06/2006 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 09/01/2005 12/05/2007 documented as of this encounter (statuses as of 05/20/2022) [facility] History of Past illness Narrative* Problem Noted Date Resolved Date Impaired fasting glucose 10/04/2016 019 CKD (chronic kidney disease) stage 3, GFR 30-59 ml/min 10/02/2015 05/24/2018 AC (acromioclavicular) joint arthritis 0 2009 Rotator cuff tendinitis 07/09/2009 05/19/19 18 Obesity, unspecified 12/05/2007 2009 Elevated blood pressure read ing without diagnosis of hypertension 12/05/2007 07/11/2008 Radial styloid tenosynovitis 11/19/2006 Exostosis of unspecified site 05/06/2006 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 09/01/2005 12/05/2007 documented as of this encounter (statuses as of 07/14/2022) [facility] History of Past illness Narrative* Problem Noted Date Resolved Date Impaired fasting glucose 10/04/2016 019 CKD (chronic kidney disease) stage 3, GFR 30-59 ml/min 10/02/2015 05/24/2018 AC (acromioclavicular) joint arthritis 0 2009 Rotator cuff tendinitis 07/09/2009 05/19/19 18 Obesity, unspecified 12/05/2007 2009 Elevated blood pressure read ing without diagnosis of hypertension 12/05/2007 07/11/2008 Radial styloid tenosynovitis 11/19/2006 Exostosis of unspecified site 05/06/2006 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 09/01/2005 12/05/2007 documented as of this encounter (statuses as of 07/30/2022) [facility] History of Past illness Narrative* Problem Noted Date Resolved Date Impaired fasting glucose 10/04/2016 019 CKD (chronic kidney disease) stage 3, GFR 30-59 ml/min 10/02/2015 05/24/2018 AC (acromioclavicular) joint arthritis 0 2009 Rotator cuff tendinitis 07/09/2009 05/19/19 18 Obesity, unspecified 12/05/2007 2009 Elevated blood pressure read ing without diagnosis of hypertension 12/05/2007 07/11/2008 Radial styloid tenosynovitis 11/19/2006 Exostosis of unspecified site 05/06/2006 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 09/01/2005 12/05/2007 documented as of this encounter (statuses as of 07/31/2022) [facility] History of Past illness Narrative* Problem Noted Date Resolved Date Impaired fasting glucose 10/04/2016 019 CKD (chronic kidney disease) stage 3, GFR 30-59 ml/min 10/02/2015 05/24/2018 AC (acromioclavicular) joint arthritis 0 2009 Rotator cuff tendinitis 07/09/2009 05/19/19 18 Obesity, unspecified 12/05/2007 2009 Elevated blood pressure read ing without diagnosis of hypertension 12/05/2007 07/11/2008 Radial styloid tenosynovitis 11/19/2006 Exostosis of unspecified site 05/06/2006 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 09/01/2005 12/05/2007 documented as of this encounter (statuses as of 08/10/2022) [facility] History of Past illness Narrative* Problem Noted Date Diagnosed Date Resolved Date Impaired fasting glucose 10/04/2016 CKD (chronic kidney disease) stage 3, GFR 30-59 ml/min 10/02/2015 05/24/2018 AC (acromioclavicular) joint arthritis 07/09/2009 2009 Rotator cuff tendinitis 07/09/200904/30 Obesity, unspecified 12/05/2007 010 Elevated blood pressure read ing without diagnosis of hypertension 12/05/2007 07/11/2008 Radial styloid tenosynovitis 11/19/2006 05/19/2017 Exostosis of unspecified site 05/06/2006 12/05/2007 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 09/01/2005 12/05/2007 documented as of this encounter (statuses as of 11/19/2022) [facility] History of Past illness Narrative* Problem Noted Date Diagnosed Date Resolved Date Impaired fasting glucose 10/04/2016 CKD (chronic kidney disease) stage 3, GFR 30-59 ml/min 10/02/2015 05/24/2018 AC (acromioclavicular) joint arthritis 07/09/2009 2009 Rotator cuff tendinitis 07/09/200904/30 Obesity, unspecified 12/05/2007 010 Elevated blood pressure read ing without diagnosis of hypertension 12/05/2007 07/11/2008 Radial styloid tenosynovitis 11/19/2006 05/19/2017 Exostosis of unspecified site 05/06/2006 12/05/2007 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 09/01/2005 12/05/2007 documented as of this encounter (statuses as of 01/12/2023) [facility] History of Past illness Narrative* Problem Noted Date Diagnosed Date Resolved Date Impaired fasting glucose 10/04/2016 CKD (chronic kidney disease) stage 3, GFR 30-59 ml/min 10/02/2015 05/24/2018 AC (acromioclavicular) joint arthritis 07/09/2009 2009 Rotator cuff tendinitis 07/09/200904/30 Obesity, unspecified 12/05/2007 010 Elevated blood pressure read ing without diagnosis of hypertension 12/05/2007 07/11/2008 Radial styloid tenosynovitis 11/19/2006 05/19/2017 Exostosis of unspecified site 05/06/2006 12/05/2007 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 09/01/2005 12/05/2007 documented as of this encounter (statuses as of 03/01/2023) [facility] History of Past illness Narrative* Problem Noted Date Diagnosed Date Resolved Date Impaired fasting glucose 10/04/2016 CKD (chronic kidney disease) stage 3, GFR 30-59 ml/min 10/02/2015 05/24/2018 AC (acromioclavicular) joint arthritis 07/09/2009 2009 Rotator cuff tendinitis 07/09/200904/30 Obesity, unspecified 12/05/2007 010 Elevated blood pressure read ing without diagnosis of hypertension 12/05/2007 07/11/2008 Radial styloid tenosynovitis 11/19/2006 05/19/2017 Exostosis of unspecified site 05/06/2006 12/05/2007 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 09/01/2005 12/05/2007 documented as of this encounter (statuses as of 03/02/2023) [facility] History of Past illness Narrative* Problem Noted Date Diagnosed Date Resolved Date Impaired fasting glucose 10/04/2016 CKD (chronic kidney disease) stage 3, GFR 30-59 ml/min 10/02/2015 05/24/2018 AC (acromioclavicular) joint arthritis 07/09/2009 2009 Rotator cuff tendinitis 07/09/200904/30 Obesity, unspecified 12/05/2007 010 Elevated blood pressure read ing without diagnosis of hypertension 12/05/2007 07/11/2008 Radial styloid tenosynovitis 11/19/2006 05/19/2017 Exostosis of unspecified site 05/06/2006 12/05/2007 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 09/01/2005 12/05/2007 documented as of this encounter (statuses as of 03/03/2023) [facility] Diagnosis Medicare annual wellness visit, subsequent- Primary Routine general medical examination at a health care facility Essential hypertension Unspecified essential hypertension Hyperlipidemia, mixed Mixed hyperlipidemia GERD without esophagitis Esophageal reflux Ocular migraine Other forms of migraine, without mention of intractable migraine without mention of status migrainosus 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 Irritable bowel syndrome, unspecified type Living will in place Advance directive discussed with patient Other specified counseling Need for pneumococcal vaccine Need for prophylactic vaccination against streptococcus pneumoniae (pneumococcus) [facility] Diagnosis Foot pain, right- Primary Pain in limb Tendonitis of ankle or foot Tenosynovitis of foot and ankle [facility] Diagnosis Medicare annual wellness visit, subsequent- Primary Routine general medical examination at a health care facility Essential hypertension Unspecified essential hypertension Hyperlipidemia, mixed Mixed hyperlipidemia GERD without esophagitis Esophageal reflux 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 Ocular migraine Other forms of migraine, without mention of intractable migraine without mention of status migrainosus Irritable bowel syndrome, unspecified type Petechiae Spontaneous ecchymoses Advance directive discussed with patient Other specified counseling Need for vaccination Need for prophylactic vaccination and inoculation against unspecified single disease Pain in both knees, unspecified chronicity [facility] Diagnosis Arthritis of both knees Unspecified arthropathy, lower leg [facility] Diagnosis Palpitations- Primary PAC (premature atrial contraction) Supraventricular premature beats [facility] Diagnosis Hypomagnesemia Disorders of magnesium metabolism documented in this encounter [facility] for referral (narrative)* Diagnostic Procedure Only (Routine) - Closed Specialty Diagnoses / Procedures Referred By Contac t Referred To Contact XR IMAGING Diagnoses Pain in both knees, unspecified chronicity Procedures XR KNEE GENERAL 4V AP BOTH/PA BOTH/LAT/MERC BILATERAL RADIOLOGIC EXAM KNEE COMPLETE 4/MORE VIEWS Elizabeth Schmidt MD [id number] [place] [address] Xr Imaging Referral ID Status Reason Start Date Expiration Date V isits Requested Visits Authorized [id number] Closed Auto-Generate d Referral 07/29/2022 08/28/2023 1 [facility] Outpatient Procedure (Routine) - Pending Review Specialty Diagnoses / Procedures Referred By Mindy lino Referred To [facility] Diagnoses Palpitations Procedures ECG COMPLETE ECG ROUTINE ECG W/LEAST 12 LDS W/I&R Elizabeth Schmidt MD [id number] [place] [address] [facility] [place] [address] [place] [address] Referral ID Status Reason Start Date Expiration Date Visits Requested Visits Authorized [id number] Pending Review Auto-Generat ed Referral 03/01/2023 02/29/2024 1 1 [facility] Advance Directives No Advanced Directives Records FoundDocuments on File Type Date Recorded Patient [employer] Expl anation Advance Directive(s) 01/23/2020 9:11 AM Advance Directive(s) 01/16/2020 9:25 AM Documents on File Type Date Recorded Patient [employer] Expl anation Advance Directive(s) 11/10/2022 1:34 PM Documents on File Type Date Recorded Patient [employer] Expl anation Advance Directive(s) 11/10/2022 1:34 PM Reason for Referral Specialty Diagnoses / Procedures Referred By Mindy lino Referred To Contact Podiatry Diagnoses Foot pain, right Procedures CONSULT TO PODIATRY OFFICE/OUTPATIENT NEW HIGH MDM 60-74 MINUTES Liliana Skinner APRN.CLINICAL NURSE OCCUPATIONAL MEDICINE [id number] [place] [address] Referral ID Status Reason Start Date Expiration Date Visits Requested Visits Authorized [id number] Authorized PCP Requested Referral 2 01/05/2023 1 1 Specialty Diagnoses / Procedures Referred By Contac t Referred To Contact XR IMAGING Diagnoses Foot pain, right Procedures XR FOOT GENERAL 3V AP/LAT/OBL RIGHT RADEX FOOT COMPLETE MINIMUM 3 VIEWS Liliana Skinner APRN.CLINICAL NURSE OCCUPATIONAL MEDICINE [address] [place] [address] Xr Imaging Referral ID Status Reason Start Date Expiration Date V isits Requested Visits Authorized [id number] Closed Auto-Generate d Referral 01/05/2022 02/04/2023 1 1 Summary Purpose Family History No Family History Records Found Additional Source Comments Source Comments (unrecognize d section and content) In the event this informatio n is protected by the Federal Confidentiality of Alcohol and Drug Abuse Patient Records regulations: The Federal rules restrict any use of the information to criminally investigate or prosecute any alcohol or drug abuse patient.[facility] the event this information is protected by the Federal Confidentiality of Alcohol and Drug Abuse Patient Records regulations: The Federal rules restrict any use of the information to criminally investigate or prosecute any alcohol or drug abuse patient.[facility] the event this information is protected by the Federal Confidentiality of Alcohol and Drug Abuse Patient Records regulations: The Federal rules restrict any use of the information to criminally investigate or prosecute any alcohol or drug abuse patient.[facility] the event this information is protected by the Federal Confidentiality of Alcohol and Drug Abuse Patient Records regulations: The Federal rules restrict any use of the information to criminally investigate or prosecute any alcohol or drug abuse patient.[facility] the event this information is protected by the Federal Confidentiality of Alcohol and Drug Abuse Patient Records regulations: The Federal rules restrict any use of the information to criminally investigate or prosecute any alcohol or drug abuse patient.[facility] the event this information is protected by the Federal Confidentiality of Alcohol and Drug Abuse Patient Records regulations: The Federal rules restrict any use of the information to criminally investigate or prosecute any alcohol or drug abuse patient.[facility] the event this information is protected by the Federal Confidentiality of Alcohol and Drug Abuse Patient Records regulations: The Federal rules restrict any use of the information to criminally investigate or prosecute any alcohol or drug abuse patient.[facility] the event this information is protected by the Federal Confidentiality of Alcohol and Drug Abuse Patient Records regulations: The Federal rules restrict any use of the information to criminally investigate or prosecute any alcohol or drug abuse patient.[facility] the event this information is protected by the Federal Confidentiality of Alcohol and Drug Abuse Patient Records regulations: The Federal rules restrict any use of the information to criminally investigate or prosecute any alcohol or drug abuse patient.[facility] the event this information is protected by the Federal Confidentiality of Alcohol and Drug Abuse Patient Records regulations: The Federal rules restrict any use of the information to criminally investigate or prosecute any alcohol or drug abuse patient.[facility] the event this information is protected by the Federal Confidentiality of Alcohol and Drug Abuse Patient Records regulations: The Federal rules restrict any use of the information to criminally investigate or prosecute any alcohol or drug abuse patient.[facility] the event this information is protected by the Federal Confidentiality of Alcohol and Drug Abuse Patient Records regulations: The Federal rules restrict any use of the information to criminally investigate or prosecute any alcohol or drug abuse patient.[facility] Reason for Visit (unrecogniz ed section and content) Reason Comments Ankle Pain R foot pain radiatin g to ankle x2 days worse, chronic through summer Reason Onset Date Comments Refill Request 05/20/2022 Reason Onset Date Comments Refill Request 07/14/2022 Reason Comments Results INR Reason Comments Medicare Wellness Exam Reason Comments Results Reason Onset Date Comments Refill Request 11/18/2022 Reason Comments Refill Request Reason Comments Patient Update Reason Comments Follow Up Care Teams (unrecognized sec tion and content) 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 Relationship Specialty Start Date End Date Elizabeth Schmidt MD [address] [place], [place] [phone] PCP - General Family Medicine 01/08/21 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 Relationship Specialty Start Date End Date Elizabeth Schmidt MD [address] [place], [place] [phone] PCP - General Family Medicine 01/08/21 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 Relationship Specialty Start Date End Date Elizabeth Schmidt MD [address] [place], [place] [id number] PCP - General Family Medicine 01/08/21 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 Relationship Specialty Start Date End Date Elizaebth Schmidt MD [address] [place] [address] PCP - General Family [facility] 01/08/21 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 Relationship Specialty Start Date End Date Elizabeth Schmidt MD [address] [place] [address] PCP - General Family [facility] 01/08/21 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 Relationship Specialty Start Date End Date Elizabeth Schmidt MD [address] [place] [address] PCP - General [facility] 01/08/21 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 Relationship Specialty Start Date End Date Elizabeth Schmidt MD [address] [place] [address] PCP - [facility] 01/08/21 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 Relationship Specialty Start Date End Date Elizabeth Schmidt MD [address] [place] [address] PCP - General Family [facility] 01/08/21 INFORMATION SOURCE (unrecogn ized section and content) FOR RECORDS PERTAINING TO PATIENTS WHO ARE OR HAVE BEEN ENROLLED IN A CHEMICAL DEPENDENCY/SUBSTANCEABUSE PROGRAM, SOME INFORMATION MAY BE OMITTED. This clinical summary was aggregated from multiple sources. Caution should be exercised in using it in the provision of clinical care. This summary normalizes information from multiple sources, and as a consequence, information in this document may materially change the coding, format and clinical context of patient data. In addition, data may be omitted in some cases. CLINICAL DECISIONS SHOULD BE BASED ON THE PRIMARY CLINICAL RECORDS. [employer] provides no warranty or guarantee of the accuracy or completeness of information in this document.
--- NOTE | 2023-04-15 15:50 | STRESSREP ---
Stress Test Report Pharmacologic myocardial perfusion stress test. 82-year-old lady with a history of chest pain Resting EKG demonstrates sinus rhythm with a rate of 67 bpm. Resting blood pressure is 138/82 mmHg. 0.4 mg of regadenoson was infused per usual protocol followed by rapid intravenous saline flush injection. Continuous EKG monitoring was performed. The maximum heart rate was 91 bpm which was 65% of max impacted heart rate the maximum workload was 1 metabolic equivalent. At rest there were no ST or T wave changes noted to suggest ischemia and at peak infusion nonspecific ST changes were noted which did not meet the criteria for ischemia. No clinical angina is noted. The final blood pressure was 128/64 mmHg. Myocardial perfusion protocol. 13.6 mCi of technetium 99m sestamibi was injected at rest. 0.4 mg of regadenoson was infused per usual protocol. At peak infusion 40.3 mCi of technetium 99m sestamibi was injected stress images were obtained stress and rest images were reconstructed and compared in the short axis vertical long and horizontal long axis. Gated images were also obtained. Perfusion SPECT analysis: Review of the stress images demonstrate normal uptake of tracer noted in all areas of the myocardium. The resting images similar demonstrated normal uptake of tracer noted in all areas of the myocardium. No areas of reversibility are noted to suggest ischemia and no previous infarct is noted. Gated SPECT analysis: The gated ejection fraction is 83%. Conclusion: Normal pharmacologic myocardial perfusion stress test. Preserved ejection fraction.
== END | disposition home or self-care (01) ==
LOC: CVS 05:59
PROVIDERS: PCP Family Medicine; Referring Provider Family Medicine; Visit Provider Family Medicine
DX: R06.09 Other forms of dyspnea (principal)
CPT/HCPCS: 78452; 93017; A9500; A4216; J2785